=== PATIENT | female | born 1995 ===

== ENCOUNTER 2020-01-20 13:08 | Outpatient (REF) | payer OTHER, SELFPAY | END 2020-01-20 13:09 | disposition home or self-care (01) | LOC: HO.LAB 13:08 | PROVIDERS: PCP Nurse Practitioner Pediatrics; Visit Provider Advanced Practice Midwife | DX: Z78.9 Other specified health status (principal); Z32.01 Encounter for pregnancy test, result positive | CPT/HCPCS: 84702; 99211 ==

== ENCOUNTER 2020-01-31 10:08 | Outpatient (REF) | payer OTHER, SELFPAY ==
--- NOTE | 2020-01-31 10:14 | US_ITS ---
EXAMINATION: OBSTETRICAL ULTRASOUND HISTORY: 24-year-old at [id number] with on certain LMP NT evaluation COMPARISON: None TECHNIQUE: Real time transabdominal imaging with color and M-mode Doppler. PRESENTATION: Vertex PLACENTA LOCATION: Anterior without previa AMNIOTIC FLUID: Normal MEASUREMENTS: 1. Biparietal Diameter: 3.32 cm; 16.3 wks 2. Head Circumference: 12.3 cm; 16.2 wks 3. Abdominal Circumference: 9.94 cm; 16.0 wks 4. Femur Length: 2.1 cm; 16.2 wks 5. Heart Rate: 144 beats per minute WEIGHT: Estimated weight is 145 grams (0 lbs 5 oz) -- N/A %. Normal views of lateral cerebral ventricle, 4ch view, kidneys, urinary bladder, stomach. GESTATIONAL AGE: 1. Established GA: N/A wks 2. GA from [facility]: 16.2 wks ESTIMATED DATE OF DELIVERY: 1. Established EILEEN: N/A 2. [facility]EN from [facility]: 07/15/2020 US/US OB <= 14 weeks fetus IMPRESSION: 1. Single live fetus 2. Size greater than dates. The remainder of her LMP was uncertain, she is further along than she had anticipated. Her best EILEEN is 07/15/2020. RECOMMENDATIONS: 1. Follow-up in approximately 2-3 weeks for survey (scheduled). Thank you very much for this referral.
== END 2020-01-31 10:09 | disposition home or self-care (01) ==
LOC: HO.US 10:08
PROVIDERS: Visit Provider Advanced Practice Midwife
DX: O26.849 Uterine size-date discrepancy, unspecified trimester (principal); Z78.9 Other specified health status
CPT/HCPCS: 76801

== ENCOUNTER 2020-02-14 13:03 | Outpatient (REF) | payer OTHER, SELFPAY ==
--- NOTE | 2020-02-14 | US_ITS ---
EXAMINATION: US OBSTETRICAL CLINICAL INFORMATION: 24-year-old at 18.2 weeks of gestation Suspected anomaly COMPARISON: 01/31/2020 TECHNIQUE: Real-time transabdominal ultrasound was performed using C1-5 megahertz transducer. FINDINGS: A single, active, fetus is seen in vertex presentation. The placenta is anterior without previa, and the amniotic fluid volume is wnl. MEASUREMENTS: 1. Biparietal Diameter: 4.0 cm; 18.2 wks 2. Occipital Frontal Diameter: 5.0 cm 3. Head Circumference: 14.7 cm; 18.0 wks 4. Abdominal Circumference: 11.7 cm; 17.3 wks 5. Femur Length: 2.6 cm; 18.0 wks 6. Humerus Length: 2.5 cm; 17.6 wks 7. Tibia Length: 2.3 cm; 18.3 wks 8. Ulna Length: 2.2 cm; 17.5 wks 9. Lateral ventricle: 0.7 cm 10. Cerebellum: 1.75 cm; 18.3 wks 11. Cisterna Magna: 0.29 cm 12. Nuchal Fold: 2.4 mm 13. Heart Rate: 147 beats per minute Rt ovary: normal Lt ovary: normal Cervical length 3.8 cm on T/A. GESTATIONAL AGE: 1. Established GA: 18.2 wks 2. GA from [facility]: 18.0 wks ESTIMATED DATE OF DELIVERY: 1. Established EILEEN: 07/15/2020 2. EILEEN from [facility]: 07/17/2020 ANATOMY: The visualized anatomy includes but not limited to: 1. Cranium: Normal 2. Intracranial anatomy: cavum septum pellucidi, lateral ventricles, choroid plexus, cerebellum, posterior fossa, third and fourth ventricles. 3. face: orbits, lip/palate, profile, nasal bone 4. Heart: four-chamber view of the heart, ventricular septum, foramen ovale, pulmonary vein, left and right outflow tracts, three-vessel view, 3 vessel trachea view, aortic and ductal arches, situs.. 5. Diaphragm: Normal 6. Abdominal wall: Normal 7. Cord Insertion: Normal 8. Spine: Cervical, thoracic, lumbar, sacral. 9. Stomach: Normal size and shape 10. Right Kidney: Normal 11. Left Kidney: Normal 12. 3 vessel cord: Normal 13. Upper extremity: Open hands, fifth digit. 14. Lower extremity: Tibia, fibula, bilateral feet. 15. Bladder: Normal 16. Genitalia: Female, patient aware US/US OB /maternal detail IMPRESSION: 1. Single, living, intrauterine with appropriate biometry. 2. Normal survey DISCUSSION: I reviewed today's ultrasound findings. We discussed the limitations of ultrasound in diagnosing aneuploidy and other congenital abnormalities. I reviewed the differences between screening test and diagnostic test. Amniocentesis was discussed and declined. She was informed that the baseline incidence of congenital abnormalities is approximately 3-5%. Not all these conditions are diagnosable in utero. RECOMMENDATIONS: Thank you for allowing me to participate in her care. Visiting time 25 minutes. Majority of this visit was spent reviewing and discussing her care.
== END 2020-02-14 13:04 | disposition home or self-care (01) ==
LOC: HO.US 13:03
PROVIDERS: Visit Provider Advanced Practice Midwife
DX: O35.9XX0 Maternal care for (suspected) fetal abnormality and damage, unspecified, not applicable or unspecified (principal); Z36.3 Encounter for antenatal screening for malformations
CPT/HCPCS: 76811

== ENCOUNTER → 2020-03-20 09:59 | Outpatient (BNVA) | payer OTHER, SELFPAY | PROVIDERS: Visit Provider Advanced Practice Midwife | DX: Z13.89 Encounter for screening for other disorder (principal) | CPT/HCPCS: 99212 ==

== ENCOUNTER 2020-04-01 12:45 | Outpatient (REF) | payer OTHER, SELFPAY ==
[2020-04-02 11:23] LABS: BV Int Neg Control Negative (Negative); BV Int Pos Control Positive (Positive)
[2020-04-02 11:58] LABS: C. trachomatis RNA TMA NOT DETECTED (NOT DETECTED); N. gonorrhoeae RNA TMA NOT DETECTED (NOT DETECTED)
== END 2020-04-01 12:46 | disposition home or self-care (01) ==
LOC: HO.LAB 12:45
PROVIDERS: Visit Provider Advanced Practice Midwife
DX: O99.891 Other specified diseases and conditions complicating pregnancy (principal); N89.8 Other specified noninflammatory disorders of vagina; Z3A.25 25 weeks gestation of pregnancy
CPT/HCPCS: 36415; 81003; 87480; 87491; 87510; 87591; 87660; 99212

== ENCOUNTER 2020-04-27 14:54 | Outpatient (REF) | payer OTHER, SELFPAY ==
[2020-04-27 15:32] LABS: MANUAL DIFF FLAG NO
[2020-04-27 15:39] LABS: Basophils Absolute Auto 0.1 X10*3/uL (0.0-0.2); Basophils Percent Auto 0.3 % (0-2); Eosinophils Absolute Auto 0.1 X10*3/uL (0.0-0.4); Eosinophils Percent Auto 0.6 % (0-4); Hematocrit 36.1 % (37-47); Hemoglobin 11.3 g/dl (12.0-16.0); Imm Gran Abs Auto 0.21 X10*3/uL (0.00-0.03); Imm Gran Pct Auto 1.4 % (0.0-0.4); Lymphocytes Absolute Auto 2.2 X10*3/uL (1.2-4.9); Lymphocytes Percent Auto 14.5 % (20-40); Mean Corpuscular HGB Conc 31.3 g/dl (31.0-35.0); Mean Corpuscular Hemoglobin 26.7 pg (27.0-33.0); Mean Corpuscular Volume 85.3 fL (80-98); Mean Platelet Volume 10.2 fL (9.4-12.3); Monocytes Absolute Auto 0.7 X10*3/uL (0.1-1.2); Monocytes Percent Auto 4.7 % (2-11); Neutrophils Percent Auto 78.5 % (45-73); Platelet Count 324 X10*3/uL (160-400); Red Blood Count 4.23 X10*6/uL (4.20-5.50); Red Cell Distribution Width 12.3 % (11.0-16.0); White Blood Count 15.3 X10*3/uL (4.8-10.8)
[2020-04-27 16:42] LABS: Syphilis Screen Nonreactive (Nonreactive)
[2020-04-27 18:18] LABS: Amphetamine Screen Urine Not Detected (Not Detect); Barbiturates, Urine Not Detected (Not Detect); Benzodiazepines Screen Urine Not Detected (Not Detect); Cannabinoid Screen Urine POSITIVE (Not Detect); Cocaine Screen Urine Not Detected (Not Detect); Opiate Screen Urine Not Detected (Not Detect); Phencyclidine Screen Urine Not Detected (Not Detect)
[2020-04-28 21:12] LABS: Rubella IgG Antibody 2.08 Index
[2020-04-29 08:15] LABS: HIV AB/AG Nonreactive (Nonreactive); HIV Num 1 0.05 S/CO (0.00-0.99)
[2020-04-29 09:01] LABS: HBsAGNum1 0.14 S/CO (0.00-0.99); Hepatitis B Surface Antigen Negative (Negative); ~HepC Num1 0.07 S/CO (0.00-0.79); ~Hepatitis C Antibody Nonreactive (Nonreactive)
[2020-04-29 20:37] LABS: C. trachomatis RNA TMA NOT DETECTED (NOT DETECTED); N. gonorrhoeae RNA TMA NOT DETECTED (NOT DETECTED)
== END 2020-04-27 14:55 | disposition home or self-care (01) ==
LOC: HO.LAB 14:54
PROVIDERS: Absent Provider Advanced Practice Midwife; PCP Internal Medicine; Visit Provider Advanced Practice Midwife
DX: Z34.90 Encounter for supervision of normal pregnancy, unspecified, unspecified trimester (principal)
CPT/HCPCS: 80307; 85025; 85027; 86762; 86780; 86787; 86803; 86850; 86900; 86901; 87086; 87340; 87389; 87491; 87591

== ENCOUNTER 2020-04-29 13:10 | Outpatient (REF) | payer OTHER, SELFPAY | END 2020-04-29 13:11 | disposition home or self-care (01) | LOC: HO.LAB 13:10 | PROVIDERS: Visit Provider Advanced Practice Midwife | DX: O99.343 Other mental disorders complicating pregnancy, third trimester (principal); F32.9 Major depressive disorder, single episode, unspecified; O99.213 Obesity complicating pregnancy, third trimester; E66.9 Obesity, unspecified; O09.33 Supervision of pregnancy with insufficient antenatal care, third trimester; O99.323 Drug use complicating pregnancy, third trimester; F12.90 Cannabis use, unspecified, uncomplicated; O99.113 Other diseases of the blood and blood-forming organs and certain disorders involving the immune mechanism complicating pregnancy, third trimester; D72.829 Elevated white blood cell count, unspecified; O26.893 Other specified pregnancy related conditions, third trimester; R82.998 Other abnormal findings in urine; Z3A.29 29 weeks gestation of pregnancy | CPT/HCPCS: 81003; 87086; 99212 ==

== ENCOUNTER 2020-05-19 13:10 | Outpatient (REF) | payer OTHER, SELFPAY ==
[2020-05-19 15:26] LABS: Hematocrit 38.1 % (37-47); Hemoglobin 11.8 g/dl (12.0-16.0); Mean Corpuscular Hemoglobin 26.8 pg (27.0-33.0); Mean Corpuscular Volume 86.6 fL (80-98); Platelet Count 354 X10*3/uL (160-400); Red Cell Distribution Width 12.8 % (11.0-16.0); White Blood Count 16.3 X10*3/uL (4.8-10.8)
[2020-05-19 15:28] LABS: Glucose 1 Hour PP 50gm Dose 71 mg/dL (60-140)
[2020-05-20 08:46] LABS: Syphilis Screen Nonreactive (Nonreactive)
[2020-05-20 11:40] LABS: CT PCR NOT DETECTED (Not Detect.); NG PCR NOT DETECTED (Not Detect.)
== END 2020-05-19 13:11 | disposition home or self-care (01) ==
LOC: HO.LAB 13:10
PROVIDERS: Advanced Practice Midwife; Visit Provider Advanced Practice Midwife
DX: O99.343 Other mental disorders complicating pregnancy, third trimester (principal); F32.9 Major depressive disorder, single episode, unspecified; Z20.2 Contact with and (suspected) exposure to infections with a predominantly sexual mode of transmission; Z3A.00 Weeks of gestation of pregnancy not specified
CPT/HCPCS: 36415; 85027; 86780; 87491; 87591

== ENCOUNTER → 2020-05-21 15:21 | Outpatient (BNVA) | payer OTHER, SELFPAY | PROVIDERS: Visit Provider Obstetrics & Gynecology | DX: Z34.90 Encounter for supervision of normal pregnancy, unspecified, unspecified trimester (principal); Z3A.32 32 weeks gestation of pregnancy | CPT/HCPCS: 99212 ==

== ENCOUNTER → 2020-06-09 13:43 | Outpatient (BNVA) | payer OTHER, SELFPAY | PROVIDERS: Visit Provider Advanced Practice Midwife | DX: Z34.83 Encounter for supervision of other normal pregnancy, third trimester (principal); B37.3 Candidiasis of vulva and vagina; Z3A.34 34 weeks gestation of pregnancy | CPT/HCPCS: 81003; 99212 ==

== ENCOUNTER 2020-06-23 14:16 | Outpatient (REF) | payer OTHER, SELFPAY ==
[2020-06-24 04:49] LABS: CT PCR NOT DETECTED (Not Detect.); NG PCR NOT DETECTED (Not Detect.)
== END 2020-06-23 14:17 | disposition home or self-care (01) ==
LOC: HO.LAB 14:16
PROVIDERS: Visit Provider Advanced Practice Midwife
DX: Z34.83 Encounter for supervision of other normal pregnancy, third trimester (principal); Z3A.36 36 weeks gestation of pregnancy
CPT/HCPCS: 81003; 87081; 87147; 87491; 87591; 99212

== ENCOUNTER → 2020-07-01 14:43 | Outpatient (BNVA) | payer OTHER, SELFPAY | PROVIDERS: Visit Provider Advanced Practice Midwife | DX: Z34.83 Encounter for supervision of other normal pregnancy, third trimester (principal); Z3A.38 38 weeks gestation of pregnancy | CPT/HCPCS: 81003; 99212 ==

== ENCOUNTER → 2020-07-09 15:08 | Outpatient (BNVA) | payer OTHER, SELFPAY | PROVIDERS: Visit Provider Advanced Practice Midwife | DX: O36.8330 Maternal care for abnormalities of the fetal heart rate or rhythm, third trimester, not applicable or unspecified (principal); Z3A.39 39 weeks gestation of pregnancy | CPT/HCPCS: 59025; 99212 ==

== ENCOUNTER 2021-05-17 11:57 | Emergency (ER) | payer OTHER, SELFPAY | END 2021-05-17 13:21 | disposition left against medical advice (07) | PROVIDERS: Emergency Provider Emergency Medicine | DX: R42 Dizziness and giddiness (principal); N93.9 Abnormal uterine and vaginal bleeding, unspecified ==

== ENCOUNTER 2021-05-17 22:19 | Day surgery (SDC) | payer OTHER, SELFPAY ==
--- NOTE | ~2021-05-17 | US_ITS ---
EXAMINATION: US PELVIS CLINICAL INFORMATION: pelvic pain, menorrhagia. Chemical at the end of February. COMPARISON: None TECHNIQUE: Ultrasound of the pelvis is performed using both transabdominal and transvaginal transducers along with Doppler. Transvaginal imaging is performed due to inadequate visualization transabdominally. FINDINGS: Uterus: The uterus is anteverted and measures 8.3 x 4.7 x 5.5 cm. There is heterogeneous thickening of the endometrium measuring up to 1.9 cm with internal blood flow on color Doppler. No significant internal fluid in the endometrial canal. No fibroids are identified. Adnexa: Both ovaries are visualized. There is normal color flow to the adnexa. There is no ovarian torsion. There is no pelvic ascites or fluid collection. There is likely a resolving corpus luteum on the left, measuring 2.2 cm in diameter. Right ovary measures 3.9 x 1.9 x 2.5 cm. 9.7 mL Left ovary measures 4.9 x 2.3 x 2.2 cm. 13 mL Trace intraperitoneal free fluid. US/US pelvic and transvaginal IMPRESSION: Heterogeneous thickening of the uterine endometrium with internal blood flow on color Doppler, potentially due to retained products of conception given the patient history of chemical .
--- NOTE | ~2021-05-17 | US_ITS ---
EXAMINATION: US PELVIS, LIMITED/FOLLOW UP CLINICAL INFORMATION: Suction D C COMPARISON: Pelvic ultrasound from the same day. TECHNIQUE: US/US pelvic limited FINDINGS/IMPRESSION: Multiple intraprocedural images demonstrate echogenic impingement in the region of the endometrial canal. Endometrial thickness is normal on the post procedural images.
[2021-05-17 22:36] VITALS: BP 132/51; PULSE 88; RESP 18; TEMP 35.9; O2SAT 100; BMI 31.8
[2021-05-18] VITALS (16 sets, daily range): BP systolic 110–124; BP diastolic 47–72; PULSE 72–89; RESP 14–20; TEMP 36.3–36.9; O2SAT 94–100
[2021-05-18 01:53] LABS: MANUAL DIFF FLAG NO
[2021-05-18 01:55] LABS: Appearance Urine HAZY; Basophils Percent Auto 0.4 % (0-2); Color Urine YELLOW; Eosinophils Absolute Auto 0.2 X10*3/uL (0.0-0.4); Glucose Urine UA NEG (NEG); Hematocrit 23.8 % (37.0-47.0); Imm Gran Abs Auto 0.03 X10*3/uL (0.00-0.03); Imm Gran Pct Auto 0.3 % (0.0-0.4); Leukocyte Esterase Urine NEG (NEG); Lymphocytes Absolute Auto 2.9 X10*3/uL (1.2-4.9); Lymphocytes Percent Auto 28.6 % (20-40); Mean Corpuscular HGB Conc 28.2 g/dl (31.0-35.0); Mean Corpuscular Volume 74.6 fL (80.0-98.0); Mean Platelet Volume 10.3 fL (9.4-12.3); Monocytes Absolute Auto 0.7 X10*3/uL (0.1-1.2); Monocytes Percent Auto 6.8 % (2-11); Neutrophils Absolute Auto 6.2 x10*3/uL (2.0-8.3); Neutrophils Percent Auto 61.9 % (45-73); Nitrite Urine NEG (NEG); PH 6.5 (5.0-8.0); Platelet Count 341 X10*3/uL (160-400); Red Blood Count 3.19 X10*6/uL (4.20-5.50); Red Cell Distribution Width 15.9 % (11.0-16.0); Specific Gravity - Urine 1.025 (1.005-1.025); UACC Culture Trigger NO; Urine Blood 3+ (NEG); Urine Ketones NEG (NEG); Urine Protein TRACE MG/DL (NEG-TRACE)
[2021-05-18 01:57] LABS: Hemoglobin 6.7 g/dl (12.0-16.0)
[2021-05-18 01:58] LABS: UPreg QC Valid YES; Urine Pregnancy NEGATIVE (NEGATIVE)
[2021-05-18 02:03] LABS: Bacteria Urine TRACE /LPF; Mucus Urine 1+ /LPF; RBC Urine 50-75 /HPF (0); Squamous Epithelial Cell Urine 3+ /LPF; UACC CULT YES
[2021-05-18 02:16] LABS: Alanine Aminotransferase 8 U/L (0-31); Albumin Level 4.3 g/dL (3.5-5.0); Alkaline Phosphatase 62 U/L (39-117); Anion Gap 15 (12-20); Aspartate Amino Transferase 11 U/L (5-31); Bilirubin Total 0.3 mg/dL (0.0-1.0); Blood Urea Nitrogen 11 mg/dL (9-16); Calcium 9.2 mg/dL (8.4-10.2); Carbon Dioxide 24 mmol/L (22-29); Chloride 105 mmol/L (96-108); Estimated Glomerular Filt Rate > 60; Glucose Random 101 mg/dL (60-115); Lipase 30 U/L (8-78); Potassium 4.2 mmol/L (3.3-5.1); Sodium 140 mmol/L (135-145); Total Protein 7.2 g/dL (6.5-8.0)
[2021-05-18 02:21] LABS: HCG Quantitative 8 mIU/mL
--- NOTE | 2021-05-18 02:27 | ED.FEMALEGU ---
HPI - Female Genitourinary General Chief complaint: Vaginal Bleeding Stated complaint: vaginal bleeding [id number] Time Seen by Provider: 05/18/21 02:01 Source: patient Mode of arrival: ambulatory History of Present Illness HPI Narrative: 25-year-old female, , presents after having undergone medical in February and states that she has ?not stopped bleeding since that time?. She states that she did follow-up with her primary care provider today who attempted to reach out to OBGYN without success and referred the patient to the emergency room for further evaluation. Patient denies any diaphoresis, shortness of breath, palpitations, but states that she has begun experiencing dizziness on physician change from sitting to standing. Patient states that on average she is changing her pads 6-12 times in 24 hours. She reports that the blood is painless in nature and denies any personal or family history of bleeding disorders. Related Data Home Medications Medication Instructions Recorded Confirmed prenat.vits,maribel,[id number] 1 tab PO DAILY 03/20/20 07/09/20 Previous Rx's Medication Instructions Recorded metronidazole 0.75 % vaginal gel 1 appful VAGINAL DAILY 5 Days #70 g 04/29/20 (Metrogel Vaginal) clotrimazole 1 % vaginal cream 1 appful VAGINAL BEDTIME #45 g 06/09/20 Allergies Allergy/AdvReac Type Severity Reaction Status Date / Time No Known Allergies Allergy Verified 07/09/20 15:53 [No Known Allergies*] Review of Systems Review of Systems: Pertinent positives and negatives as stated in HPI 10 point review of systems is otherwise negative. PMFSH Past Medical History Source: nursing notes reviewed Medical History Depression affecting in third trimester, antepartum Encounter for supervision of normal in third trimester Family History Family History Father Hx of diabetes mellitus Paternal Grandmother Hx of diabetes mellitus Social History Social History Household Members: Significant Other and Children Alcohol intake: never Advance Directives: No Advance Directives Information Provided: Yes Patient : No service: No Current occupational status: unemployed Current occupational exposures/hazards: No Physical Exam Vital Signs: Vital Signs: Last Vital Signs Temp 97.9 F 03/22/22 02:08 Pulse 84 05/18/21 04:15 Resp 15 05/18/21 04:15 BP 116/62 05/18/21 04:15 Pulse Ox 96 05/18/21 04:15 BMI result Body Mass Index 31.8 VITAL SIGNS: Reviewed. GENERAL: Well developed, well nourished, in no acute distress. HEAD: Normocephalic/atraumatic, EYES: PERRLA, EOMI, pale conjunctiva OROPHARYNX: no oral lesions noted, posterior pharynx clear, pale mucosa NECK: Supple, no adenopathy LUNGS: Normal breath sounds. No adventitious sounds or accessory muscle use. SpO2<100> CARDIOVASCULAR: Regular rate and rhythm without noted murmurs ABDOMEN: Soft, non-tender, non-distended with bowel sounds. MUSCULOSKELETAL: No tenderness, deformities, or effusions noted on gross inspection. EXTREMITIES: No cyanosis, clubbing or edema. SKIN: Inspection of the skin reveals no rashes, but pallor NEUROLOGIC: Alert and oriented x 4. Strength and sensation to light touch were grossly intact x 4. Course Course Course Narrative: 25-year-old female with history and clinical presentation suggestive of possible retained products and patient did not receive any subsequent follow-up after she underwent the medical . Review of all investigations consistent with acute blood loss anemia, patient is typed and screened, this case was discussed with Dr. Plata who will re-evaluate the patient for possible suction D&C after repeat CBC at 06:00. Patient was informed of all plans and results. Ultrasound was significant for suggestion of retained products. 0412: Dr Plata take patient to the OR, patient will receive 1 unit RBC and was consented for prior to administration. Patient was informed of all plans and understands. MDM - Female Genitourinary Lab Data Result diagrams: 05/18/21 01:48 05/18/21 01:48 Labs: Lab Results 05/18/21 05/18/21 05/18/21 Range/Units 01:48 01:48 01:48 WBC 10.0 (4.8-10.8) X10*3/uL RBC 3.19 L (4.20-5.50) X10*6/uL Hgb 6.7 L* (12.0-16.0) g/dl Hct 23.8 L (37.0-47.0) % MCV 74.6 L (80.0-98.0) fL MCH 21.0 L (27.0-33.0) pg MCHC 28.2 L (31.0-35.0) g/dl RDW 15.9 (11.0-16.0) % Plt Count 341 (160-400) X10*3/uL MPV 10.3 (9.4-12.3) fL Immature Gran % (Auto) 0.3 (0.0-0.4) % Neut % (Auto) 61.9 (45-73) % Lymph % (Auto) 28.6 (20-40) % [place] % (Auto) 6.8 (2-11) % Eos % (Auto) 2.0 (0-4) % Baso % (Auto) 0.4 (0-2) % Lymph # (Auto) 2.9 (1.2-4.9) X10*3/uL [place] # (Auto) 0.7 (0.1-1.2) X10*3/uL Eos # (Auto) 0.2 (0.0-0.4) X10*3/uL Baso # (Auto) 0.0 (0.0-0.2) X10*3/uL Abs Immat Gran (auto) 0.03 (0.00-0.03) X10*3/uL Absolute Neuts (auto) 6.2 (2.0-8.3) x10*3/uL Absolute Nucleated RBC 0.000 (0.0-0.012) X10*3/uL Nucleated RBC % (auto) 0.0 (0.0-0.2) /100WBC Sodium 140 (135-145) mmol/L Potassium 4.2 (3.3-5.1) mmol/L Chloride 105 (96-108) mmol/L Carbon Dioxide 24 (22-29) mmol/L Anion Gap 15 (12-20) BUN 11 (9-16) mg/dL Creatinine 0.75 (0.5-1.4) mg/dL Estim Creat Clear Calc 117.0 Estimated GFR > 60 Random Glucose 101 (60-115) mg/dL Calcium 9.2 (8.4-10.2) mg/dL Total Bilirubin 0.3 (0.0-1.0) mg/dL AST 11 (5-31) U/L ALT 8 (0-31) U/L Alkaline Phosphatase 62 (39-117) U/L Total Protein 7.2 (6.5-8.0) g/dL Albumin 4.3 (3.5-5.0) g/dL Lipase 30 (8-78) U/L Beta HCG, Quant 8 mIU/mL Urine Color Urine Appearance Urine pH (5.0-8.0) Ur Specific [place] (1.005-1.025) Urine Protein (NEG-TRACE) MG/DL Urine Glucose (UA) (NEG) MG/DL Urine Ketones (NEG) MG/DL Urine Blood (NEG) Urine Nitrite (NEG) Ur Leukocyte Esterase (NEG) Urine RBC (0) /HPF Urine WBC (0-4) /HPF Ur Squamous Epith Cells /LPF Urine Bacteria /LPF Urine Mucus /LPF Urine Test (NEGATIVE) Blood Type Antibody Screen Crossmatch 05/18/21 05/18/21 05/18/21 Range/Units 01:48 01:49 03:23 WBC (4.8-10.8) X10*3/uL RBC (4.20-5.50) X10*6/uL Hgb (12.0-16.0) g/dl Hct (37.0-47.0) % MCV (80.0-98.0) fL MCH (27.0-33.0) pg MCHC (31.0-35.0) g/dl RDW (11.0-16.0) % Plt Count (160-400) X10*3/uL MPV (9.4-12.3) fL Immature Gran % (Auto) (0.0-0.4) % Neut % (Auto) (45-73) % Lymph % (Auto) (20-40) % [place] % (Auto) (2-11) % Eos % (Auto) (0-4) % Baso % (Auto) (0-2) % Lymph # (Auto) (1.2-4.9) X10*3/uL [place] # (Auto) (0.1-1.2) X10*3/uL Eos # (Auto) (0.0-0.4) X10*3/uL Baso # (Auto) (0.0-0.2) X10*3/uL Abs Immat Gran (auto) (0.00-0.03) X10*3/uL Absolute Neuts (auto) (2.0-8.3) x10*3/uL Absolute Nucleated RBC (0.0-0.012) X10*3/uL Nucleated RBC % (auto) (0.0-0.2) /100WBC Sodium (135-145) mmol/L Potassium (3.3-5.1) mmol/L Chloride (96-108) mmol/L Carbon Dioxide (22-29) mmol/L Anion Gap (12-20) BUN (9-16) mg/dL Creatinine (0.5-1.4) mg/dL Estim Creat Clear Calc Estimated GFR Random Glucose (60-115) mg/dL Calcium (8.4-10.2) mg/dL Total Bilirubin (0.0-1.0) mg/dL AST (5-31) U/L ALT (0-31) U/L Alkaline Phosphatase (39-117) U/L Total Protein (6.5-8.0) g/dL Albumin (3.5-5.0) g/dL Lipase (8-78) U/L Beta HCG, Quant mIU/mL Urine Color YELLOW Urine Appearance HAZY Urine pH 6.5 (5.0-8.0) Ur Specific [place] 1.025 (1.005-1.025) Urine Protein TRACE (NEG-TRACE) MG/DL Urine Glucose (UA) NEG (NEG) MG/DL Urine Ketones NEG (NEG) MG/DL Urine Blood 3+ H (NEG) Urine Nitrite NEG (NEG) Ur Leukocyte Esterase NEG (NEG) Urine RBC 50-75 H (0) /HPF Urine WBC 10-14 H (0-4) /HPF Ur Squamous Epith Cells 3+ /LPF Urine Bacteria TRACE /LPF Urine Mucus 1+ /LPF Urine Test NEGATIVE (NEGATIVE) Blood Type O Positive Antibody Screen NEGATIVE Crossmatch See Detail Critical Care Time Critical Care Time Critical Care Time: Yes Total Critical Care Time: 30 Attestation: I personally attest to this time spent taking care of the patient. Discharge Plan Discharge Clinical Impression: Menorrhagia, Retained products of conception following , Acute blood loss anemia Patient Disposition: Admitted As Inpatient
--- NOTE | 2021-05-18 04:24 | P.CONOB_ITS ---
RESOURCE RECOVERY SPECIALIST - CN: HPI Data of Consult Consult date: 05/18/21 Primary Care Provider: Ovidio Lovell MD Consult Narrative Narrative: I was consulted on Radha Guerrero who is a 25 year old female P2012 who presented to the emergency room complaining of dizziness after heavy vaginal bleeding last 8 weeks . The [facility] given a dose of p.o. 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 No other symptoms no pelvic pain, fever or chills or vaginal discharge. cc:: CC: PATTERN SCRATCHER - Review of Systems Review of Systems ROS Unobtainable: All systems reviewed & are unremarkable except as noted in HPI and below Cardiovascular: Denies Palpatations, Loss of consciousness or Chest pain Respiratory: Denies Cough, Wheezing or Shortness of breath Musculoskeletal: Denies Low back pain Gastrointestinal: Denies Heartburn, Constipation, Diarrhea, Nausea or Vomiting Genitourinary: Denies Pain with urination, Burning with urination or Urinary frequency Neurological: Denies Migranes Psychological: Denies Depression OB [facility] Past Medical History Medical History Depression affecting in third trimester, antepartum Encounter for supervision of normal in third trimester Family History Family History Father Hx of diabetes mellitus Paternal Grandmother Hx of diabetes mellitus Social History Social History Household Members: Significant Other and Children Alcohol intake: never Advance Directives: No Advance Directives Information Provided: Yes Patient : No service: No Current occupational status: unemployed Current occupational exposures/hazards: No Meds Allergies Allergy/AdvReac Type Severity Reaction Status Date / Time No Known Allergies Allergy Verified 07/09/20 15:53 [No Known Allergies*] RESOURCE RECOVERY SPECIALIST Physical Exam Vitals Vital signs: Temp Pulse Resp BP Pulse Ox 97.9 F 84 15 116/62 96 05/18/21 02:08 05/18/21 04:15 05/18/21 04:15 05/18/21 04:15 05/18/21 04:15 BMI result Body Mass Index 31.8 Constitutional General Appearance: Healthy appearing, Well-nourished and Well-developed Psychiatric Mood and Affect: active and alert, normal mood and normal affect Skin Appearance: No rashes and No lesions Lungs Respiratory Effort: No intercostal retractions Auscultation: Clear to auscultation Cardiovascular Auscultation: RRR Abdomen Auscultation/Inspection/Palpation: Normal bowel sounds, Soft, Non-distended and No tenderness Female Genitalia (Pelvic) Vulva: No lesions Cervix: No cervical motion tenderness Uterus: Normal size Adnexa/Parametria: Adnexal Tenderness: None, Adnexal Mass: None and Parametrial Tenderness: None Additional Comments: Blood per vagina, cervix open RESOURCE RECOVERY SPECIALIST - Results Labs CBC & Chem 7: 05/18/21 04:38 05/18/21 01:48 Labs: Short CBC 05/18/21 Range/Units 01:48 WBC 10.0 (4.8-10.8) X10*3/uL Hgb 6.7 L* (12.0-16.0) g/dl Hct 23.8 L (37.0-47.0) % Plt Count 341 (160-400) X10*3/uL BMP 05/18/21 01:48 Sodium 140 Potassium 4.2 Chloride 105 Carbon Dioxide 24 BUN 11 Creatinine 0.75 Calcium 9.2 Liver Function 05/18/21 Range/Units 01:48 Total Bilirubin 0.3 (0.0-1.0) mg/dL AST 11 (5-31) U/L ALT 8 (0-31) U/L Alkaline Phosphatase 62 (39-117) U/L Albumin 4.3 (3.5-5.0) g/dL Urine 05/18/21 05/18/21 Range/Units 01:48 01:49 Urine Color YELLOW Urine Appearance HAZY Urine pH 6.5 (5.0-8.0) Ur Specific [place] 1.025 (1.005-1.025) Urine Protein TRACE (NEG-TRACE) MG/DL Urine Glucose (UA) NEG (NEG) MG/DL Urine Test NEGATIVE (NEGATIVE) Antibody Screen Antibody Screen NEGATIVE 05/18/21 03:23 Imaging US - abdomen: Radiologist's impression: ITS Impressions Pelvic/Transvag US 05/18/21 02:50 IMPRESSION: Heterogeneous thickening of the uterine endometrium with internal blood flow on color Doppler, potentially due to retained products of conception given the patient history of chemical . Assessment and Plan (1) Retained products of conception following : Status: Acute Plan Transfuse 1 unit of packed RBCs, and proceed with suction D&C under ultrasound guidance. Doxycycline 200 mg p.o. preop. Discussed with the patient the clinical findings and the possible diagnosis of retained products of conception and anemia. Discussed with the patient the benefits of the procedure and its risks including but not limited to: bleeding, infection, risk of uterine perforation, possible injury to bladder, ureter, bowels, blood vessels, possible need for blood transfusion with all its risks, possible laparoscopy, laparotomy or hysterectomy. In addition to possible negative impact on future fertility. All questions answered, the patient verbalized understanding and signed the consent
[2021-05-18 04:43] LABS: Basophils Percent Auto 0.4 % (0-2); Eosinophils Absolute Auto 0.2 X10*3/uL (0.0-0.4); Eosinophils Percent Auto 1.9 % (0-4); Hematocrit 23.9 % (37.0-47.0); Imm Gran Abs Auto 0.05 X10*3/uL (0.00-0.03); Imm Gran Pct Auto 0.5 % (0.0-0.4); Lymphocytes Absolute Auto 2.6 X10*3/uL (1.2-4.9); Lymphocytes Percent Auto 26.6 % (20-40); MANUAL DIFF FLAG NO; Mean Corpuscular Hemoglobin 20.7 pg (27.0-33.0); Mean Corpuscular Volume 73.8 fL (80.0-98.0); Mean Platelet Volume 9.6 fL (9.4-12.3); Monocytes Absolute Auto 0.7 X10*3/uL (0.1-1.2); Monocytes Percent Auto 7.3 % (2-11); Neutrophils Absolute Auto 6.1 x10*3/uL (2.0-8.3); Neutrophils Percent Auto 63.3 % (45-73); Platelet Count 327 X10*3/uL (160-400); Red Blood Count 3.24 X10*6/uL (4.20-5.50); Red Cell Distribution Width 15.9 % (11.0-16.0); White Blood Count 9.6 X10*3/uL (4.8-10.8)
[2021-05-18 04:46] LABS: Hemoglobin 6.7 g/dl (12.0-16.0)
--- NOTE | 2021-05-18 05:26 | HO.ANESPROP2 ---
[facility] Active Problems Active Problems: All Active Problems (Updated 05/18/21 @ 05:24 by Justin Plata MD) Menorrhagia (Acute) Retained products of conception following (Acute) Acute blood loss anemia (Acute) Group B streptococcal infection during (Acute) Variable heart rate decelerations, antepartum (Acute) Depression affecting in third trimester, antepartum (Acute) Encounter for supervision of normal in third trimester (Acute) Yeast infection of the vagina (Acute) (Acute) Cervical cancer screening (Acute) Suspected abnormality affecting management of mother (Acute) Date of last menstrual period (LMP) unknown (Acute) Past Medical History Medical History Depression affecting in third trimester, antepartum Encounter for supervision of normal in third trimester Family History Family History Father Hx of diabetes mellitus Paternal Grandmother Hx of diabetes mellitus Family history of problems with anesthesia: No Surgical History History of Problems with Anesthesia: No Social History Social History Household Members: Significant Other and Children Alcohol intake: never Advance Directives: No Advance Directives Information Provided: Yes Patient : No service: No Current occupational status: unemployed Current occupational exposures/hazards: No Meds Allergies Allergy/AdvReac Type Severity Reaction Status Date / Time No Known Allergies Allergy Verified 07/09/20 15:53 [No Known Allergies*] Active Medications: Current Medications Doxycycline Hyclate (Doxycycline Hyclate 100 Mg Tablet) 200 mg PO ONCE ONE Stop: 05/18/21 05:22 Exam Exam Date and Time: May 18, 2021 0526 Height,Weight and Vital Signs: Height 5 ft 3 in Weight 81.647 kg Last Vital Signs Temp 98.4 F 05/18/21 05:04 Pulse 78 05/18/21 05:04 Resp 14 05/18/21 05:04 BP 116/70 05/18/21 05:04 Pulse Ox 98 05/18/21 05:03 Pertinent Lab Results Pertinent Lab Results: Laboratory Tests 05/18/21 05/18/21 05/18/21 01:48 01:48 01:48 WBC 10.0 RBC 3.19 L Hgb 6.7 L* Hct 23.8 L MCV 74.6 L MCH 21.0 L MCHC 28.2 L RDW 15.9 Plt Count 341 MPV 10.3 Immature Gran % (Auto) 0.3 Neut % (Auto) 61.9 Lymph % (Auto) 28.6 [place] % (Auto) 6.8 Eos % (Auto) 2.0 Baso % (Auto) 0.4 Lymph # (Auto) 2.9 [place] # (Auto) 0.7 Eos # (Auto) 0.2 Baso # (Auto) 0.0 Abs Immat Gran (auto) 0.03 Absolute Neuts (auto) 6.2 Absolute Nucleated RBC 0.000 Nucleated RBC % (auto) 0.0 Sodium 140 Potassium 4.2 Chloride 105 Carbon Dioxide 24 Anion Gap 15 BUN 11 Creatinine 0.75 Estim Creat Clear Calc 117.0 Estimated GFR > 60 Random Glucose 101 Calcium 9.2 Total Bilirubin 0.3 AST 11 ALT 8 Alkaline Phosphatase 62 Total Protein 7.2 Albumin 4.3 Lipase 30 Beta HCG, Quant 8 Urine Color Urine Appearance Urine pH Ur Specific [place] Urine Protein Urine Glucose (UA) Urine Ketones Urine Blood Urine Nitrite Ur Leukocyte Esterase Urine RBC Urine WBC Ur Squamous Epith Cells Urine Bacteria Urine Mucus Urine Test Blood Type Antibody Screen Crossmatch 05/18/21 05/18/21 05/18/21 01:48 01:49 03:23 WBC RBC Hgb Hct MCV MCH MCHC RDW Plt Count MPV Immature Gran % (Auto) Neut % (Auto) Lymph % (Auto) [place] % (Auto) Eos % (Auto) Baso % (Auto) Lymph # (Auto) [place] # (Auto) Eos # (Auto) Baso # (Auto) Abs Immat Gran (auto) Absolute Neuts (auto) Absolute Nucleated RBC Nucleated RBC % (auto) Sodium Potassium Chloride Carbon Dioxide Anion Gap BUN Creatinine Estim Creat Clear Calc Estimated GFR Random Glucose Calcium Total Bilirubin AST ALT Alkaline Phosphatase Total Protein Albumin Lipase Beta HCG, Quant Urine Color YELLOW Urine Appearance HAZY Urine pH 6.5 Ur Specific [place] 1.025 Urine Protein TRACE Urine Glucose (UA) NEG Urine Ketones NEG Urine Blood 3+ H Urine Nitrite NEG Ur Leukocyte Esterase NEG Urine RBC 50-75 H Urine WBC 10-14 H Ur Squamous Epith Cells 3+ Urine Bacteria TRACE Urine Mucus 1+ Urine Test NEGATIVE Blood Type O Positive Antibody Screen NEGATIVE Crossmatch See Detail 05/18/21 04:38 WBC 9.6 RBC 3.24 L Hgb 6.7 L* Hct 23.9 L MCV 73.8 L MCH 20.7 L MCHC 28.0 L RDW 15.9 Plt Count 327 MPV 9.6 Immature Gran % (Auto) 0.5 H Neut % (Auto) 63.3 Lymph % (Auto) 26.6 [place] % (Auto) 7.3 Eos % (Auto) 1.9 Baso % (Auto) 0.4 Lymph # (Auto) 2.6 [place] # (Auto) 0.7 Eos # (Auto) 0.2 Baso # (Auto) 0.0 Abs Immat Gran (auto) 0.05 H Absolute Neuts (auto) 6.1 Absolute Nucleated RBC 0.000 Nucleated RBC % (auto) 0.0 Sodium Potassium Chloride Carbon Dioxide Anion Gap BUN Creatinine Estim Creat Clear Calc Estimated GFR Random Glucose Calcium Total Bilirubin AST ALT Alkaline Phosphatase Total Protein Albumin Lipase Beta HCG, Quant Urine Color Urine Appearance Urine pH Ur Specific [place] Urine Protein Urine Glucose (UA) Urine Ketones Urine Blood Urine Nitrite Ur Leukocyte Esterase Urine RBC Urine WBC Ur Squamous Epith Cells Urine Bacteria Urine Mucus Urine Test Blood Type Antibody Screen Crossmatch Airway Mallampati Class: II TM Dist: >3cm Neck ROM: Full Assessment and Plan Assessment Anesthesia Assessment: Anesthesia Plan Discussed and Chart Reviewed Final Anesthetic Review Family History of Problems with Anesthesia: No History of Problems with Anesthesia: No NPO: Yes ASA Class: II and Emergency Final Preanesthetic Review: No Changes in Pt Med Stat, Meds/Allgs Chart Reviewed, Consent Obtained/Reviewed and Anes Risks/Benef Reviewed Patient Risk: Intermediate Procedure Risk: Intermediate Anesthetic Plan Anesthetic Plan: GA Disposition: Standard PACU
[2021-05-18 05:43] LABS: COVID-19 Test Negative (Negative)
--- NOTE | 2021-05-18 05:57 | PC.NURSE ---
This RN and FRANCO Ruiz unable to locate pre procedure pre op checklist. FRANCO Ruiz contacting surgery for further instruction. Per surgery, to disregard checklist.
--- NOTE | 2021-05-18 06:01 | PC.NURSE ---
Called [facility] to verify location of pre-op checklist on line, since I was not able to located in computer. [facility] nurse was not aware okay to sent down. Notified TRUSS DESIGNER.
--- NOTE | 2021-05-18 06:10 | PC.NURSE ---
pt in the OR at the time that vitals are due
--- NOTE | 2021-05-18 06:31 | PM.OP ---
Brief Operative Note Date of Service: 05/18/21 Pre-op diagnosis: Retained products of conception Post-op diagnosis: same Procedure: Suction D&C under ultrasound guidance Surgeon: Justin Plata MD Anesthesia: MAC Was an Grievance And Appeals Specialist used for this Procedure?: No Estimated blood loss (mL): 0 Pathology: other (Retained products of conception) Condition: stable Disposition: PACU
--- NOTE | 2021-05-18 06:32 | P.OP_ITS ---
Operative Note Operative Note Date of Service: 05/18/21 Narrative: Preop diagnosis: Retained products of conception Operation: suction D and C under ultrasound guidance Postop diagnosis: The same EBL: Minimal Anesthesia: MAC Fountain Roller Assembler: None Pathology: Retained products of conception Procedure: The patient was put in a dorsal distal mid position was scrubbed and draped in the usual sterile fashion. A sterile speculum was inserted inside the patient's vagina the anterior lip of the cervix was grasped with single-tooth tenaculum the cervix was dilated up to 7 mm. Under ultrasonographic guidance flexible 8. Suction tip was introduced inside the patient ran cavity till the f undus was hit then turning the suction 360 degrees around products of conception was sucked out toward the uterine cavity. The suction tip was taken out of the patient uterine cavity sharp curettings was followed in 4 quadrants of the uterus till a gritty feeling was felt. The suction tip was reintroduced under ultrasonographic guidance and intrauterine blood was sucked. The suction tip was taken out. Single-tooth tenaculum was removed hemostasis assured using pressure. The patient tolerated the procedure well and was transferred to the PACU in a stable condition.
[2021-05-18 09:30] LABS: CT PCR NOT DETECTED (Not Detect.); NG PCR NOT DETECTED (Not Detect.)
== END 2021-05-18 07:57 | disposition home or self-care (01) ==
LOC: HO.ED 05-18 06:34 → HO.SSS 05-18 07:22
PROVIDERS: Emergency Provider Student in an Organized Health Care Education/Training Program; PCP Internal Medicine; Visit Provider Obstetrics & Gynecology
PROC: (CPT 59812; principal; 2021-05-18 05:30)
DX: O03.4 Incomplete spontaneous abortion without complication (principal); R42 Dizziness and giddiness; Z20.822 Contact with and (suspected) exposure to COVID-19
CPT/HCPCS: 59812; 36415; 36430; 76830; 76856; 76857; 80053; 81001; 81025; 83690; 84702; 85025; 86850; 86900; 86901; 86923; 87086; 87147; 87491; 87591; 87635; 88305; 99284; 99285; J1100; J2250; J2405; J3010; P9016

== ENCOUNTER 2021-10-03 07:12 | Emergency (ER) | payer OTHER, SELFPAY ==
--- NOTE | ~2021-10-03 | US_ITS ---
EXAMINATION: Limited US PELVIS, TRANSABDOMINAL. PATIENT REFUSED TRANSVAGINAL STUDY. CLINICAL INFORMATION: Recent September 28, 2021. Question retained products of conception. Beta hCG is 7235. COMPARISON: May 18, 2021 TECHNIQUE: Transcutaneous and transvaginal pelvic ultrasound. Transvaginal scanning was performed after voiding to better evaluate the endometrium and adnexa. FINDINGS: The endometrium is thickened at approximately 2.3 cm in diameter with some regions of internal vascularity suggestive of retained products of conception. No gestational sac or pole was identified. The right ovary measures approximately 2.2 x 2.0 x 2.1 cm. No adnexal abnormality appreciated The left ovary measures 3.3 x 2.1 x 1.5 cm. No left adnexal abnormality appreciated. No significant free pelvic fluid. US/US OB limited IMPRESSION: Findings consistent with retained products of conception on this limited transabdominal pelvic study.
[2021-10-03 07:34] VITALS: BP 107/68; PULSE 89; RESP 18; TEMP 37.1; O2SAT 97
[2021-10-03 07:35] VITALS: BP 140/82; PULSE 91; O2SAT 97
[2021-10-03 08:13] LABS: Basophils Absolute Auto 0.1 X10*3/uL (0.0-0.2); Basophils Percent Auto 0.7 % (0-2); Eosinophils Absolute Auto 0.2 X10*3/uL (0.0-0.4); Eosinophils Percent Auto 2.3 % (0-4); Hematocrit 32.5 % (37.0-47.0); Hemoglobin 9.5 g/dl (12.0-16.0); Imm Gran Abs Auto 0.04 X10*3/uL (0.00-0.03); Imm Gran Pct Auto 0.4 % (0.0-0.4); Lymphocytes Absolute Auto 2.7 X10*3/uL (1.2-4.9); Lymphocytes Percent Auto 27.3 % (20-40); MANUAL DIFF FLAG NO; Mean Corpuscular HGB Conc 29.2 g/dl (31.0-35.0); Mean Corpuscular Hemoglobin 20.3 pg (27.0-33.0); Mean Corpuscular Volume 69.4 fL (80.0-98.0); Monocytes Absolute Auto 0.8 X10*3/uL (0.1-1.2); Monocytes Percent Auto 7.9 % (2-11); Neutrophils Absolute Auto 6.2 x10*3/uL (2.0-8.3); Neutrophils Percent Auto 61.4 % (45-73); Platelet Count 424 X10*3/uL (160-400); Red Blood Count 4.68 X10*6/uL (4.20-5.50); Red Cell Distribution Width 18.6 % (11.0-16.0)
[2021-10-03 08:17] LABS: Appearance Urine CLOUDY; Color Urine RED; Glucose Urine UA NEG (NEG); Leukocyte Esterase Urine TRACE (NEG); Nitrite Urine NEG (NEG); Specific Gravity - Urine 1.025 (1.005-1.025); UACC Culture Trigger NO; Urine Blood 3+ (NEG); Urine Ketones NEG (NEG); Urine Protein 2+ MG/DL (NEG-TRACE)
[2021-10-03 08:20] LABS: UPreg QC Valid YES; Urine Pregnancy POSITIVE (NEGATIVE)
[2021-10-03 08:25] LABS: Squamous Epithelial Cell Urine 1+ /LPF
[2021-10-03 08:26] LABS: RBC Urine TNTC /HPF (0); WBC Urine 0-2 /HPF (0-4)
[2021-10-03 08:27] LABS: Bacteria Urine TRACE /LPF
[2021-10-03 08:35] LABS: Anion Gap 12 (12-20); Blood Urea Nitrogen 7 mg/dL (9-16); Calcium 8.5 mg/dL (8.4-10.2); Carbon Dioxide 24 mmol/L (22-29); Chloride 106 mmol/L (96-108); Estimated Glomerular Filt Rate > 60; Glucose Random 94 mg/dL (60-115); Potassium 4.2 mmol/L (3.3-5.1); Sodium 138 mmol/L (135-145)
[2021-10-03 08:42] LABS: HCG Quantitative 7235 mIU/mL
--- NOTE | 2021-10-03 10:13 | ED.BACK ---
HPI - Back Pain/Injury General Chief Complaint: OB Stated Complaint: lower back pain, Time Seen by Provider: 10/03/21 09:42 Source: patient Mode of arrival: ambulatory Limitations: no limitations History of Present Illness HPI Narrative: 25-year-old female who is healthy presents with lower back pain starting last 2 days not improved with ibuprofen at home. [facility] She tells me the next day she developed some bleeding and some abdominal cramping. She has used about 2 pads per day since then with some abdominal cramping. Pain in the back is in the lower area and has been quite severe unrelieved with NSAIDs. Patient denies fevers or chills. Patient has 2 living children, 1 previous AB with failed medical AB requiring D&C Patient was approximately 7 weeks with LMP 07/09 Related Data Previous Rx's Medication Instructions Recorded misoprostol 200 mcg tablet 800 mcg PO ONCE #12 tabs 10/03/21 (Cytotec) oxycodone 5 mg tablet 5 mg PO Q8H PRN pain #3 tabs 10/03/21 Allergies Allergy/AdvReac Type Severity Reaction Status Date / Time No Known Allergies Allergy Verified 07/09/20 15:53 [No Known Allergies*] Review of Systems Review of Systems: Yes all other systems are reviewed and are negative Constitutional: Constitutional: Reports no additional constitutional complaints, Denies body ache(s), Denies chills, Denies fever(s), Denies headache(s) and Denies weakness Eyes: Eyes: Reports no additional eye complaints and Denies change in vision ENT: Reports system reviewed and no additional complaints, except as documented, Denies dizziness, Denies headache(s), Denies nasal congestion, Denies nasal discharge and Denies neck pain Cardiovascular: Cardiovascular: Reports no additional cardiovascular complaints, Denies chest pain, Denies leg edema and Denies dyspnea Respiratory: Respiratory: Reports no additional respiratory complaints, Denies cough and Denies dyspnea Gastrointestinal: Gastrointestinal: Reports no additional gastrointestinal complaints, Reports abdominal pain, Denies diarrhea, Denies nausea and Denies vomiting Genitourinary: Genitourinary: Reports no additional female genitourinary complaints, Reports abnormal vaginal bleeding and Denies urinary incontinence Musculoskeletal: Musculoskeletal: Reports no additional musculoskeletal complaints, Reports back pain, Denies arthralgias, Denies joint swelling, Denies neck pain, Denies numbness and Denies tingling Integumentary/Breasts: Skin/Breast: Reports system reviewed and no additional complaints, except as docu and Denies rash Neurologic: Reports system reviewed and no additional complaints, except as documented, Denies Abnormal speech present, Denies dizziness, Denies headache(s), Denies numbness, Denies tingling and Denies weakness PMFSH Past Medical History Attestation statement: The following information was validated with the patient. Source: old records reviewed and nursing notes reviewed Medical History Depression affecting in third trimester, antepartum Encounter for supervision of normal in third trimester Family History Family History Father Hx of diabetes mellitus Paternal Grandmother Hx of diabetes mellitus Social History Social History Household Members: Significant Other and Children Alcohol intake: never Advance Directives: No Advance Directives Information Provided: No service: No Current occupational status: unemployed Current occupational exposures/hazards: No Physical Exam Vital Signs: Vital Signs: Last Vital Signs Temp 98.4 F 10/03/21 12:47 Pulse 89 10/03/21 12:47 Resp 18 10/03/21 12:47 BP 120/64 10/03/21 12:47 Pulse Ox 98 10/03/21 12:47 O2 Del Method 10/03/21 12:47 BMI result Body Mass Index 30.1 Const: General: cooperative, healthy appearing, comfortable and no acute distress Orientation/consciousness: patient oriented x3 Limitations: no limitations HEENT: Head: Yes normal to inspection Ears: hearing grossly normal bilaterally General nose exam: Normal external nose present Face and sinus: Yes normal facial exam Mouth: Normal oral and palatal mucosa present Throat: Yes posterior oropharynx normal Eyes: General: appearance normal, both eyes and all related structures Pupils: Equal, round and reactive pupils present Neck: Neck: Yes normal visual inspection Chest: Chest palpation & inspection: normal inspection of the chest Resp: Effort & Inspection: normal respiratory effort Auscultation: clear to auscultation bilaterally Cardio: Rate: regular rate Rhythm: regular rhythm Peripheral pulses: Peripheral pulses 2+ throughout GI: Inspection: Yes normal to inspection Palpation (GI): Soft to palpation and nontender Auscultation: normal bowel sounds Back/Spine/Pelvis: Thoracic/Lumbar Spine: thoracic and lumbar spine normal to inspection Skin: General skin exam: no rashes or lesions noted Neuro: General: patient oriented x3, no focal motor deficits and normal sensation to monofilament Cranial nerves: Yes Equal, round and reactive pupils present Cognition (Neuro): normal cognition Speech: No Abnormal speech present Gait exam (Neuro): Normal gait present Motor exam (neuro): 5/5 motor strength present throughout Extrem: General: Yes normal to inspection Course Course Course Narrative: this is a 25-year-old female who had a medical on Monday who presents with continued abdominal pain, back pain and vaginal bleeding with an ultrasound that is consistent with retained products. Will call OB and discuss. Microcytic anemia which actually appears better than patient's previous Reevaluation(s) Reevaluation #1: 1100- Spoke to Dr. Plata who will come in to evaluate the patient. Reevaluation #2: 1230- Patient was seen by Dr. Plata at the bedside. He discussed options with her and the decision was made for the patient to go home to continue with misoprostol. He would like a repeat beta quant tomorrow morning which I ordered in the system. He would also like the patient to follow up with him tomorrow. The patient should take misoprostol 800 mcg and repeat the dose every 3 hours until she starts bleeding and cramping with a max dose of 3. patient can premedicate with oxycodone and she was given 3 tablets of this. patient should return for any heavy bleeding such as more than 2 pads in 1 hour or fever or worsening pain and she should follow up with doctors or be this week. I spoke at length with the patient about this. I reviewed worrisome signs and symptoms and when to return to the emergency department with the patient and she is comfortable with discharge home. MDM - Back Pain/Injury MDM Narrative Medical decision making narrative: 25-year-old female who is approximately 7 weeks with a medical on Monday of this past week presents with increasing back pain, abdominal cramping and vaginal bleeding. Patient has an iron deficiency anemia at baseline. Her hemoglobin is actually stable. Her vitals are stable. She will need labs including a beta quant and an abdominal ultrasound to eval for retained products. She has a previous Rh factor which show she is O positive. Medical Records Attestation: I reviewed the patient's medical records. Lab Data Attestation: I reviewed the patient's lab results. Result diagrams: 10/03/21 07:55 10/03/21 07:55 Labs: Lab Results 10/03/21 10/03/21 10/03/21 Range/Units 07:35 07:55 07:55 WBC 10.0 (4.8-10.8) X10*3/uL RBC 4.68 D (4.20-5.50) X10*6/uL Hgb 9.5 L D (12.0-16.0) g/dl Hct 32.5 L D (37.0-47.0) % MCV 69.4 L (80.0-98.0) fL MCH 20.3 L (27.0-33.0) pg MCHC 29.2 L (31.0-35.0) g/dl RDW 18.6 H (11.0-16.0) % Plt Count 424 H D (160-400) X10*3/uL MPV 10.0 (9.4-12.3) fL Immature Gran % (Auto) 0.4 (0.0-0.4) % Neut % (Auto) 61.4 (45-73) % Lymph % (Auto) 27.3 (20-40) % [place] % (Auto) 7.9 (2-11) % Eos % (Auto) 2.3 (0-4) % Baso % (Auto) 0.7 (0-2) % Lymph # (Auto) 2.7 (1.2-4.9) X10*3/uL [place] # (Auto) 0.8 (0.1-1.2) X10*3/uL Eos # (Auto) 0.2 (0.0-0.4) X10*3/uL Baso # (Auto) 0.1 (0.0-0.2) X10*3/uL Abs Immat Gran (auto) 0.04 H (0.00-0.03) X10*3/uL Absolute Neuts (auto) 6.2 (2.0-8.3) x10*3/uL Absolute Nucleated RBC 0.000 (0.0-0.012) X10*3/uL Nucleated RBC % (auto) 0.0 (0.0-0.2) /100WBC Sodium 138 (135-145) mmol/L Potassium 4.2 (3.3-5.1) mmol/L Chloride 106 (96-108) mmol/L Carbon Dioxide 24 (22-29) mmol/L Anion Gap 12 (12-20) BUN 7 L (9-16) mg/dL Creatinine 0.69 (0.5-1.4) mg/dL Estim Creat Clear Calc TNP Estimated GFR > 60 Random Glucose 94 (60-115) mg/dL Calcium 8.5 D (8.4-10.2) mg/dL Beta HCG, Quant mIU/mL Urine Color RED A Urine Appearance CLOUDY Urine pH 6.0 (5.0-8.0) Ur Specific [place] 1.025 (1.005-1.025) Urine Protein 2+ H (NEG-TRACE) MG/DL Urine Glucose (UA) NEG (NEG) MG/DL Urine Ketones NEG (NEG) MG/DL Urine Blood 3+ H (NEG) Urine Nitrite NEG (NEG) Ur Leukocyte Esterase TRACE H (NEG) Urine RBC TNTC H (0) /HPF Urine WBC 0-2 (0-4) /HPF Ur Squamous Epith Cells 1+ /LPF Urine Bacteria TRACE /LPF Urine Test (NEGATIVE) COVID-19 ([facility]) (Negative) COVID-19 Clin Com 10/03/21 10/03/21 10/03/21 Range/Units 07:55 07:57 10:40 WBC (4.8-10.8) X10*3/uL RBC (4.20-5.50) X10*6/uL Hgb (12.0-16.0) g/dl Hct (37.0-47.0) % MCV (80.0-98.0) fL MCH (27.0-33.0) pg MCHC (31.0-35.0) g/dl RDW (11.0-16.0) % Plt Count (160-400) X10*3/uL MPV (9.4-12.3) fL Immature Gran % (Auto) (0.0-0.4) % Neut % (Auto) (45-73) % Lymph % (Auto) (20-40) % [place] % (Auto) (2-11) % Eos % (Auto) (0-4) % Baso % (Auto) (0-2) % Lymph # (Auto) (1.2-4.9) X10*3/uL [place] # (Auto) (0.1-1.2) X10*3/uL Eos # (Auto) (0.0-0.4) X10*3/uL Baso # (Auto) (0.0-0.2) X10*3/uL Abs Immat Gran (auto) (0.00-0.03) X10*3/uL Absolute Neuts (auto) (2.0-8.3) x10*3/uL Absolute Nucleated RBC (0.0-0.012) X10*3/uL Nucleated RBC % (auto) (0.0-0.2) /100WBC Sodium (135-145) mmol/L Potassium (3.3-5.1) mmol/L Chloride (96-108) mmol/L Carbon Dioxide (22-29) mmol/L Anion Gap (12-20) BUN (9-16) mg/dL Creatinine (0.5-1.4) mg/dL Estim Creat Clear Calc Estimated GFR Random Glucose (60-115) mg/dL Calcium (8.4-10.2) mg/dL Beta HCG, Quant 7235 mIU/mL Urine Color Urine Appearance Urine pH (5.0-8.0) Ur Specific [place] (1.005-1.025) Urine Protein (NEG-TRACE) MG/DL Urine Glucose (UA) (NEG) MG/DL Urine Ketones (NEG) MG/DL Urine Blood (NEG) Urine Nitrite (NEG) Ur Leukocyte Esterase (NEG) Urine RBC (0) /HPF Urine WBC (0-4) /HPF Ur Squamous Epith Cells /LPF Urine Bacteria /LPF Urine Test POSITIVE H (NEGATIVE) COVID-19 ([place]) Negative (Negative) COVID-19 Clin Com See Note Imaging Data abdominal US: Attestation: I personally reviewed and interpreted this imaging study as follows: Radiologist's impression: [address] [address] Ultrasound Report Signed Patient: Radha Briones MR#: [id number] : 1995 Acct:[id number] Age/Sex: 25 / F ADM Date: 10/03/21 Loc: [facility].ED Attending Dr: Ordering Physician: Malia Uribe NP Date of Service: 10/03/21 Procedure(s): US OB limited Accession Number(s): [id number] cc: Malia Uribe NP~ EXAMINATION: Limited US PELVIS, TRANSABDOMINAL. PATIENT REFUSED TRANSVAGINAL STUDY. CLINICAL INFORMATION: Recent September 28, 2021. Question retained products of conception. Beta hCG is 7235. COMPARISON: May 18, 2021 TECHNIQUE: Transcutaneous and transvaginal pelvic ultrasound. Transvaginal scanning was performed after voiding to better evaluate the endometrium and adnexa. FINDINGS: The endometrium is thickened at approximately 2.3 cm in diameter with some regions of internal vascularity suggestive of retained products of conception. No gestational sac or pole was identified. The right ovary measures approximately 2.2 x 2.0 x 2.1 cm. No adnexal abnormality appreciated The left ovary measures 3.3 x 2.1 x 1.5 cm. No left adnexal abnormality appreciated. No significant free pelvic fluid. US/US OB limited IMPRESSION: Findings consistent with retained products of conception on this limited transabdominal pelvic study. ? ? Discharge Plan Discharge Clinical Impression: Incomplete Patient Disposition: Home, Self-Care Instructions: (ED) Additional Instructions: Repeat hormone level in the morning. Walk into the lab to have this done Touch base with Dr Plata tomorrow. Take the oxycodone before taking each dose of the misoprostol Return for fever, severe pain, bleeding through more thrn 2 pads per hour Prescriptions: New oxycodone 5 mg tablet 5 mg PO Q8H PRN (Reason: pain) Qty: 3 0RF Rx Instructions: Partial Fill upon patient request. misoprostol [Cytotec] 200 mcg tablet 800 mcg PO ONCE Qty: 12 0RF Rx Instructions: Insert 4 tabs intravaginally. May repeat every 3 hours if no response. Max dose is 3 doses. Do not repeat the doses if you start bleeding. Referrals: Justin Plata MD [Physician] - 2 days Interventions: ED Discharge Assessment Last Done: 10/03/21 13:02 Discharge Date/Time: 10/03/21 13:02
[2021-10-03] MEDS: Ketorolac Tromethamine 30 MG/ML VIAL IVPUSH (10:37)
[2021-10-03 11:16] LABS: COVID-19 Test Negative (Negative)
[2021-10-03 11:26] VITALS: BMI 30.1
--- NOTE | 2021-10-03 12:32 | PM.GYNCN ---
FINANCIAL AID ADVISOR - CN: HPI Data of Consult Consult date: 10/03/21 Primary Care Provider: Ovidio Lovell MD Consult Narrative Narrative: I was consulted on Radha Guerrero who is a 25 year old female who presented to the emergency room complaining of mild vaginal bleeding with back pain no fever or chills no nausea or vomiting or any other GI or symptoms. The patient change 2 pads last 24 hours; her LMP was on 08/09, the patient missed her menstrual cycle on 09/08 but took a test around the same date and was positive. The patient has been on control pills and did not miss any pills according to her. [facility], no ultrasound was done to confirm IUP nor hCG level drawn. The patient elected to proceed with medical , took mifepristone 200 mg p.o. followed by 800 mcg vaginal misoprostol on 09/28, this was followed by pelvic cramping and vaginal bleeding and passage of few clots and since then the patient has been having some mild spotting/bleeding but started having some back pain this morning presented to the emergency room for evaluation. In the emergency room the following workup was done: HCG was 7235, H&H was 9.5/32.5, blood type positive. A pelvic ultrasound showed a thickened endometrium with vascularity suggestive of retained products of conception with no adnexal masses cc:: CC: ENGINEERING DESIGN SUPERVISOR - Review of Systems Review of Systems ROS Unobtainable: All systems reviewed & are unremarkable except as noted in HPI and below Cardiovascular: Denies Palpatations, Loss of consciousness or Chest pain Respiratory: Denies Cough, Wheezing or Shortness of breath Musculoskeletal: Denies Low back pain Gastrointestinal: Denies Heartburn, Constipation, Diarrhea, Nausea or Vomiting Genitourinary: Denies Pain with urination, Burning with urination or Urinary frequency Neurological: Denies Migranes Psychological: Denies Depression OB PMFSH Past Medical History Medical History Depression affecting in third trimester, antepartum Encounter for supervision of normal in third trimester Family History Family History Father Hx of diabetes mellitus Paternal Grandmother Hx of diabetes mellitus Social History Social History Household Members: Significant Other and Children Alcohol intake: never Advance Directives: No Advance Directives Information Provided: No service: No Current occupational status: unemployed Current occupational exposures/hazards: No Meds Allergies Allergy/AdvReac Type Severity Reaction Status Date / Time No Known Allergies Allergy Verified 07/09/20 15:53 [No Known Allergies*] FINANCIAL AID ADVISOR Physical Exam Vitals Vital signs: Temp Pulse Resp BP Pulse Ox O2 Del Method 98.8 F 89 18 107/68 97 10/03/21 07:34 10/03/21 07:34 10/03/21 07:34 10/03/21 07:34 10/03/21 07:34 10/03/21 07:34 BMI result Body Mass Index 30.1 Constitutional General Appearance: Healthy appearing, Well-nourished and Well-developed Psychiatric Mood and Affect: active and alert, normal mood and normal affect Skin Appearance: No rashes and No lesions Lungs Respiratory Effort: No intercostal retractions Auscultation: Clear to auscultation Cardiovascular Auscultation: RRR Abdomen Auscultation/Inspection/Palpation: Normal bowel sounds, Soft, Non-distended and No tenderness Female Genitalia (Pelvic) Vulva: No lesions Vagina: Nontender Cervix: Grossly normal and No cervical motion tenderness Uterus: Normal size Adnexa/Parametria: Adnexal Tenderness: None, Adnexal Mass: None, Parametrial Tenderness: None and Parametrial Mass: None Additional Comments: Closed cervix , minimal blood per vagina with no evidence of vaginal bleeding FINANCIAL AID ADVISOR - Results Labs CBC & Chem 7: 10/03/21 07:55 10/03/21 07:55 Labs: Short CBC 10/03/21 Range/Units 07:55 WBC 10.0 (4.8-10.8) X10*3/uL Hgb 9.5 L D (12.0-16.0) g/dl Hct 32.5 L D (37.0-47.0) % Plt Count 424 H D (160-400) X10*3/uL BMP 10/03/21 07:55 Sodium 138 Potassium 4.2 Chloride 106 Carbon Dioxide 24 BUN 7 L Creatinine 0.69 Calcium 8.5 D Urine 10/03/21 10/03/21 Range/Units 07:35 07:57 Urine Color RED A Urine Appearance CLOUDY Urine pH 6.0 (5.0-8.0) Ur Specific [place] 1.025 (1.005-1.025) Urine Protein 2+ H (NEG-TRACE) MG/DL Urine Glucose (UA) NEG (NEG) MG/DL Urine Test POSITIVE H (NEGATIVE) Imaging US - abdomen: Radiologist's impression: ITS Impressions Obstetrics Ultrasound 10/03/21 09:58 IMPRESSION: Findings consistent with retained products of conception on this limited transabdominal pelvic study. Assessment and Plan (1) Retained products of conception following : Status: Acute Plan GC and chlamydia and Trichomonas taken. Discussed with the patient the finding on ultrasound showing thickened endometrium with vascularity suggestive of retained products of conception, no adnexal masses, hCG was 7353, H&H 9.5/32.5. Differential diagnosis include products of conception, but ectopic has not been ruled out yet. Recommended hCG to be repeated with an office follow-up in the morning, warnings for a incomplete and ectopic given the patient a she is to call in case of heavy vaginal bleeding and/ or pelvic pain, fever above 100.4, nausea and vomiting . In addition, discussed with the patient the options of treatment including expectant management, repeat misoprostol doses versus suction D& C. All pros and cons, risks and benefits of each were discussed with the patient, the patient decided to proceed with misoprostol repeat doses . 800 mcg vaginal of misoprostol Q 3 up to 3 doses will be prescribed to the patient by Malia Figueroa NP, with oxycodone 5 mg 45 minutes prior to each misoprostol dose x3 doses p.r.n., ibuprofen 800 mg p.o. Q 8 hours p.r.n. pain. Instructions given to patient to come back to the emergency room in case of heavy vaginal bleeding, worsening of pelvic/abdominal pain, fever above 100.4, nausea and vomiting otherwise follow-up in a.m. in the office with repeat hCG, and stay NPO after midnight .
[2021-10-03 12:47] VITALS: BP 120/64; PULSE 89; RESP 18; TEMP 36.9; O2SAT 98
[2021-10-03 15:07] LABS: CT PCR NOT DETECTED (Not Detect.); NG PCR NOT DETECTED (Not Detect.)
== END 2021-10-03 13:02 | disposition home or self-care (01) ==
PROVIDERS: Nurse Practitioner Family; Emergency Provider Emergency Medicine; PCP Internal Medicine
DX: O03.4 Incomplete spontaneous abortion without complication (principal); M54.50 Low back pain, unspecified; Z20.822 Contact with and (suspected) exposure to COVID-19; D50.9 Iron deficiency anemia, unspecified
CPT/HCPCS: 36415; 76815; 80048; 81001; 81025; 84702; 85025; 87491; 87591; 87635; 96374; 99283; 99284; J1885

== ENCOUNTER 2022-07-22 12:53 | Emergency (ER) | payer OTHER, SELFPAY ==
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
[2022-07-22 12:57] VITALS: BP 113/67; PULSE 92; RESP 18; TEMP 36.1; O2SAT 100; BMI 28.3
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
[2022-07-22] MEDS: Acetaminophen 325 MG TABLET 975 MG PO (14:38)
[2022-07-22] MEDS: Ibuprofen 600 MG TABLET PO (14:39)
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
== END 2022-07-22 15:15 | disposition home or self-care (01) ==
PROVIDERS: Emergency Provider Emergency Medicine
DX: S29.012A Strain of muscle and tendon of back wall of thorax, initial encounter (principal); S39.012A Strain of muscle, fascia and tendon of lower back, initial encounter; S50.12XA Contusion of left forearm, initial encounter; V47.5XXA Car driver injured in collision with fixed or stationary object in traffic accident, initial encounter; Y93.89 Activity, other specified; Y92.411 Interstate highway as the place of occurrence of the external cause; Y99.9 Unspecified external cause status
CPT/HCPCS: 72100; 73070; 73090; 99283

== ENCOUNTER 2022-10-11 12:18 | Outpatient (REF) | payer OTHER, SELFPAY ==
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
== END 2022-10-11 12:19 | disposition home or self-care (01) ==
LOC: HO.HHCX 12:18
PROVIDERS: Visit Provider Registered Nurse
DX: M25.562 Pain in left knee (principal); M25.512 Pain in left shoulder
CPT/HCPCS: 73030; 73564

== ENCOUNTER 2022-10-19 12:36 | Outpatient (AMB) | payer OTHER, SELFPAY ==
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
[2022-10-19 12:48] VITALS: BMI 28.3
== END 2022-10-19 13:05 | disposition home or self-care (01) ==
PROVIDERS: Visit Provider Orthopaedic Surgery
DX: M54.2 Cervicalgia (principal)
CPT/HCPCS: 99202

== ENCOUNTER → 2022-10-19 12:36 | Outpatient (BNVA) | payer OTHER, SELFPAY | PROVIDERS: Visit Provider Orthopaedic Surgery ==

== ENCOUNTER 2023-01-17 15:55 | Outpatient (REF) | payer OTHER, SELFPAY ==
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
== END 2023-01-17 15:56 | disposition home or self-care (01) ==
LOC: HO.MRI 15:55
PROVIDERS: Visit Provider Orthopaedic Surgery
DX: S13.4XXA Sprain of ligaments of cervical spine, initial encounter (principal)
CPT/HCPCS: 72141

== ENCOUNTER 2023-03-03 11:58 | Outpatient (REF) | payer OTHER, SELFPAY ==
[2023-03-06 14:03] LABS: RPR Rapid Plasma Reagin NON-REACTIVE (NON-REACTIVE)
[2023-03-08 16:53] LABS: HIV RNA PCR Qn Copies Not Detected Copies/mL; HIV RNA PCR Qn Log Copies Not Detected Log cps/mL
== END 2023-03-03 11:59 | disposition home or self-care (01) ==
LOC: HO.HHCL 11:58
PROVIDERS: Visit Provider Nurse Practitioner Family
DX: Z00.00 Encounter for general adult medical examination without abnormal findings (principal); Z11.4 Encounter for screening for human immunodeficiency virus [HIV]; Z11.3 Encounter for screening for infections with a predominantly sexual mode of transmission
CPT/HCPCS: 0353U; 36415; 80053; 80061; 86592; 86803; 87536; 87900

== ENCOUNTER 2023-07-04 16:34 | Emergency (ER) | payer OTHER, SELFPAY ==
--- NOTE | ~2023-07-04 | US_ITS ---
EXAMINATION: US ABDOMEN LIMITED CLINICAL INFORMATION: Right upper quadrant pain.. COMPARISON: None available. TECHNIQUE: Real-time imaging of the right upper quadrant abdominal viscera. FINDINGS: PANCREAS: Normal. LIVER: The liver is normal in size. The liver contour is normal. Parenchymal echogenicity is mildly increased. No focal hepatic lesion. There is no intrahepatic biliary duct dilatation seen. GALLBLADDER: Normal. The gallbladder is physiologically distended without evidence of stones, sludge, polyps, wall thickening or pericholecystic fluid. COMMON BILE DUCT: Normal in caliber measuring 0.2 cm in diameter. RIGHT KIDNEY: Normal. No hydronephrosis. No renal calculi or focal parenchymal lesions. The kidney measures 9.6 cm in maximum dimension. FREE FLUID: None. US/US abdomen limited IMPRESSION: 1. There is generalized increase in hepatic echotexture, consistent with fatty infiltration or hepatocellular disease. Please correlate clinically. No focal hepatic mass or intrahepatic biliary dilatation is seen. 2. Otherwise, unremarkable examination.
--- NOTE | ~2023-07-04 | CT_ITS ---
EXAMINATION: CT ABDOMEN AND PELVIS WITH CONTRAST CLINICAL INFORMATION: Right lower quadrant pain and tenderness. COMPARISON: Abdominal ultrasound 07/04/2023. TECHNIQUE: Multidetector volumetric images were obtained from the superior aspect of the liver through the pubic symphysis following administration 85 mL of Omnipaque 350 intravenous contrast. Sagittal and coronal reformatted images were obtained on the technologist's workstation. Oral contrast: No This CT examination was performed using dose optimization techniques as appropriate, variously including the following: *Automated exposure control *Adjustment of mA and/or kV according to patient size (this includes techniques or standardized protocols for targeted exams where dose is matched to indication/reason for exam; i.e. extremities or head) *Use of iterative reconstruction technique DLP: 651 mGy-cm FINDINGS: LUNG BASES: No focal consolidation or pleural effusion. LIVER, GALLBLADDER, AND BILIARY TREE: The liver is normal in size, shape, and attenuation. No focal hepatic lesion or biliary ductal dilatation is present. The gallbladder is unremarkable with no evidence of radiopaque gallstones, gallbladder wall thickening, or obvious pericholecystic inflammatory changes. PANCREAS: Unremarkable. SPLEEN: Unremarkable. ADRENAL GLANDS: Unremarkable. KIDNEYS AND URETERS: The kidneys are normal in size, shape, and attenuation. No hydronephrosis, hydroureter, or calculi seen. No perinephric stranding. BLADDER: Unremarkable. GASTROINTESTINAL TRACT: Slightly distended fluid filled loops of small bowel scattered throughout the abdomen. Minimal mesenteric vascular congestion best visualized on the coronal plane. Normal appendix (7:42). No pericolonic inflammatory changes. ABDOMINAL WALL: No significant hernia is appreciated. LYMPH NODES: No lymphadenopathy by size criteria. VASCULAR: Normal caliber abdominal aorta. Main portal vein is patent. PELVIC VISCERA: Simple appearing 5 cm right ovarian cyst. Adjacent approximately 1.7 cm right ovarian corpus luteal cyst. Equivocal right hydrosalpinx with a tubular-shaped structure in continuity with the cyst into the right uterine cornua (3:71). Trace amount of free fluid. OSSEOUS STRUCTURES: No acute or aggressive appearing osseous findings. CT/CT abdomen pelvis w IV con IMPRESSION: 1. Slightly distended fluid-filled loops of small bowel scattered throughout the abdomen with minimal mesenteric vascular congestion. These findings are nonspecific and could be associated with enteritis. 2. Normal appendix. 3. Equivocal right hydrosalpinx, recommend further evaluation with pelvic ultrasound. 4. Simple appearing 5 cm right ovarian cyst, almost certainly benign. Recommend yearly follow-up with pelvic ultrasound.
--- NOTE | ~2023-07-04 | US_ITS ---
EXAMINATION: US PELVIS CLINICAL INFORMATION: Right lower quadrant pain, CT with question hydrosalpinx COMPARISON: None available. TECHNIQUE: Ultrasound of the pelvis is performed using both transabdominal and transvaginal transducers along with Doppler. Transvaginal imaging is performed due to inadequate visualization transabdominally. FINDINGS: The retroverted uterus measures 8.5 cm in length and 4.3 x 4.9 cm in AP and transverse dimensions. Endometrial stripe measures 0.9 cm in thickness. The right ovary measures 6.6 x 4.5 x 4.7 cm there is a right ovarian cyst measuring up to 4.5 cm. The left ovary has a normal appearance measuring 3.1 x 1.3 x 2.5 cm. Doppler evaluation demonstrates normal-appearing arterial and venous waveforms in both ovaries. Small amount of pelvic free fluid is present. Small anechoic structure is also seen adjacent to the right ovary. US/US pelvic and transvaginal IMPRESSION: 1. Right ovarian cyst measuring up to 4.5 cm. Findings are overwhelmingly likely to represent a benign functional cyst. No followup imaging recommended. 2. Small amount of pelvic free fluid, which may be physiologic. 3. Small anechoic structure also noted adjacent to the right ovary, possibly focal hydrosalpinx.
--- NOTE | ~2023-07-04 | US_ITS ---
EXAMINATION: US PELVIS CLINICAL INFORMATION: Right lower quadrant pain, CT with question hydrosalpinx COMPARISON: None available. TECHNIQUE: Ultrasound of the pelvis is performed using both transabdominal and transvaginal transducers along with Doppler. Transvaginal imaging is performed due to inadequate visualization transabdominally. FINDINGS: The retroverted uterus measures 8.5 cm in length and 4.3 x 4.9 cm in AP and transverse dimensions. Endometrial stripe measures 0.9 cm in thickness. The right ovary measures 6.6 x 4.5 x 4.7 cm there is a right ovarian cyst measuring up to 4.5 cm. The left ovary has a normal appearance measuring 3.1 x 1.3 x 2.5 cm. Doppler evaluation demonstrates normal-appearing arterial and venous waveforms in both ovaries. Small amount of pelvic free fluid is present. Small anechoic structure is also seen adjacent to the right ovary. US/US pelvic ovarian doppler IMPRESSION: 1. Right ovarian cyst measuring up to 4.5 cm. Findings are overwhelmingly likely to represent a benign functional cyst. No followup imaging recommended. 2. Small amount of pelvic free fluid, which may be physiologic. 3. Small anechoic structure also noted adjacent to the right ovary, possibly focal hydrosalpinx.
[2023-07-04 18:06] VITALS: BP 138/69; PULSE 85; RESP 16; TEMP 36.9; O2SAT 100; BMI 34.1
--- NOTE | 2023-07-04 18:07 | ED.ABDPAIN ---
HPI - Abdominal Pain General Chief Complaint: Abdominal Pain Stated Complaint: Abd pain, lightheaded Time Seen by Provider: 07/04/23 22:34 Source: patient Mode of arrival: ambulatory Limitations: no limitations History of Present Illness HPI narrative: Patient is a 27-year-old female who presents emergency department for evaluation of right-sided abdominal pain. Reports it is constant in nature described as a stabbing sensation. Denies any exacerbating or alleviating factors. She admits to intermittent episodes of dizziness and lightheadedness, but denies any syncopal episodes. She reports the dizziness is typically associated with increase in the intensity of her pain. She endorses having had intermittent diarrhea described as soft/watery stools for the initial 5 days since her right-sided abdominal pain began but has not had any further episodes of diarrhea over the past 2 days. She reports a history of elective procedural on 06/04/2019 for states she was approximately 7 weeks , this was done through my OBGYN does not recall the name of the office she denies any lower pelvic pain, abnormal vaginal discharge or bleeding, concern for sexually transmitted infections. Denies possibility of at this time, however she does not recall the date of her last menstrual period. Denies any urinary frequency/urgency/hesitancy or dysuria, denies hematuria. Denies headache, neck stiffness, chest pain, shortness of breath, nausea, vomiting. She reports that she has been evaluated by her primary care doctor as well as an urgent care for these symptoms but and has been advised to come to the emergency department for evaluation. Related Data Home Medications ?Medication ?Instructions ?Recorded ?Confirmed diclofenac sodium 1 % topical gel 2 g topical 10/19/22 10/19/22 ibuprofen 800 mg tablet 800 mg PO Q12H PRN pain 10/19/22 10/19/22 naproxen 500 mg tablet 500 mg PO BID 10/19/22 10/19/22 Previous Rx's ?Medication ?Instructions ?Recorded misoprostol 200 mcg tablet 800 mcg (4 x 200 mcg) PO ONCE #12 10/03/21 (Cytotec) tabs oxycodone 5 mg tablet 5 mg PO Q8H PRN pain #3 tabs 10/03/21 cyclobenzaprine 10 mg tablet 10 mg PO TID PRN muscle spasm #14 07/22/22 tabs ibuprofen 600 mg tablet 600 mg PO Q8H PRN pain #14 tabs 07/22/22 lidocaine 5 % topical patch 1 patch topical DAILY #15 ea 07/22/22 Allergies Allergy/AdvReac Type Severity Reaction Status Date / Time No Known Allergies Allergy Verified 07/04/23 18:11 [No Known Allergies*] Review of Systems Review of Systems Yes all other systems are reviewed and are negative [facility] Past Medical History Attestation statement: The following information was validated with the patient. Source: old records reviewed Medical History Depression affecting in third trimester, antepartum Encounter for supervision of normal in third trimester Family History Family History Father Hx of diabetes mellitus Paternal Grandmother Hx of diabetes mellitus Social History Social History (Updated 10/19/22 @ 12:44 by Kristi Santana Saqib) Household Members: Significant Other and Children Alcohol intake: never Patient Tobacco Use Status: Never used Tobacco Advance Directives: No Advance Directives Information Provided: No service: No Current occupational status: employed Current occupation: [employer] Current occupational exposures/hazards: No Physical Exam ED Vital Signs: Vital Signs - 24 hr 07/04/23 18:06 07/04/23 22:09 07/05/23 00:28 Temperature 98.4 F Pulse Rate 85 82 78 Respiratory Rate 16 18 Blood Pressure 138/69 116/55 L 119/52 L Pulse Oximetry 100 98 Oxygen Delivery Method Room Air Room Air 07/05/23 00:28 07/05/23 00:28 Temperature Pulse Rate 79 80 Respiratory Rate Blood Pressure 122/66 115/72 Pulse Oximetry Oxygen Delivery Method BMI result Body Mass Index 34.1 Appearance: Alert.?Oriented to person, place and time. No acute distress.?Normal affect. Eyes: Pupils equal, round and reactive to light.? ENT: Pharynx normal.?? Neck: Normal inspection.? Neck supple.?? CVS: Heart sounds normal. Normal heart rate and rhythm.? Pulses normal.?? Respiratory: No respiratory distress.? Lung sounds clear to auscultation bilaterally?? Abdomen: Soft with right lower quadrant tenderness upon palpation. No rebound tenderness at McBurney's point. Negative Argueta sign. No rigidity. No guarding. Normoactive bowel sounds. No CVA tenderness. Skin: Skin warm and dry.? Normal skin color.? Extremities: No lower extremity edema.? Neuro: Moves all extremities spontaneously. Sensation intact bilaterally. Ambulates with normal steady gait. Course Course Course Narrative: This is a Rapid Medical Examination (RME) performed by Boy Messina PA-C in triage. Full HPI, ROS, assessment and treatment plan per primary provider in the Main ED. 27 y/o female presents to the ER for evaluation of RUQ pain for the last 1 week. intermittent diarrhea but no BM in the last 2 days. pain reported to be a /. unknown LMP. she does report that she had a recent on 06/03. she reports dizziness for the last week as well. on arrival patient is awake, alert, no distress. abd is soft with tenderness to the RUQ without rebound or guarding. also tender in the right pelvic area. no rigidity. no vaginal bleeding or discharge (resolved a few days after the ) Plan: RUQ U/S, labs, HCG quant Reevaluation(s) Reevaluation #1: CT reveals findings consistent with enteritis, slight distention, resolving diarrhea as per HPI. No evidence of appendicitis. There is equivocal right hydrosalpinx recommendation for further evaluation with pelvic ultrasound, case was discussed with ED attending Dr. Valencia who recommends pursuing pelvic ultrasound in the ED given her persistent pain. Her hCG testing is negative I do not suspect ectopic , history seems less likely to be consistent with ovarian torsion she does however have a 5 cm right ovarian cyst, we discussed any potential concerns for sexually transmitted infections and she declines concern for this declines testing. The CT results were discussed with patient. She is agreeable to having pelvic ultrasound at this time Time: 00:55 Reevaluation #2: Patient signed out to ED attending Dr. Watson, pending pelvic ultrasound Time: 02:24 Reevaluation #3: Followed up ultrasound, no evidence of torsion, noted focal hydrosalpinx. Patient declined sexually transmitted infection testing. Patient otherwise has plan for discharge as well as recommended follow-up. Time: 03:32 Medical Decision Making Medical Decision Making MDM Narrative: Patient is a 27-year-old female who presents emergency department for evaluation of right-sided abdominal pain and dizziness/lightheadedness as per HPI. At the time my examination she appears well, nontoxic, afebrile. She is speaking clear full sentences. No respiratory distress. She does have right lower quadrant tenderness upon palpation though this is diffuse, no rebound tenderness at McBurney's point, no CVA tenderness. Orthostatic vital signs were obtained which were negative. Given her episodes of dizziness brought on by intensity of pain I suspect that this is likely the etiology but will exclude alternative causes. Will obtain CBC to evaluate for leukocytosis/ anemia, CMP and lipase to evaluate for abnormal electrolytes /abnormal renal function/ abnormal hepatic/biliary function, EKG to evaluate for ischemia/arrhythmia, orthostatic vital signs. CT of the abdomen and pelvis and Urinalysis. Patient received 1 L normal saline IV fluid in addition to Toradol IV for pain management. Differential Diagnosis Differential Diagnoses: The differential diagnosis associated with the presentation includes (Biliary colic, cholecystitis, cholelithiasis, hydronephrosis, ureteral calculi, pyelonephritis, urinary tract infection, ovarian cyst, ectopic , less likely ovarian torsion, arrhythmia, anemia, electrolyte derangement, ALMA.) Admission/Observation Consideration of admission/observation: Escalation of care including admission/observation considered (See narrative above in course narrative for further detail) Lab Data MDM Lab Attestation statement: I reviewed the patient's lab results. CBC is without leukocytosis or anemia, no thrombocytopenia. No electrolyte derangement. No ALMA. LFTs within normal range, lipase within normal range. HCG negative. Magnesium normal. Urinalysis without evidence of infection or microscopic hematuria. 07/04/23 20:39 07/04/23 20:39 Labs: Lab Results 07/04/23 07/04/23 Range/Units 20:39 22:16 WBC 10.5 (4.8-10.8) X10*3/uL RBC 5.19 (4.20-5.50) X10*6/uL Hgb 12.8 D (12.0-16.0) g/dl Hct 41.2 D (37.0-47.0) % MCV 79.4 L (80.0-98.0) fL MCH 24.7 L (27.0-33.0) pg MCHC 31.1 (31.0-35.0) g/dl RDW 13.1 (11.0-16.0) % Plt Count 337 (160-400) X10*3/uL MPV 10.3 (9.4-12.3) fL Immature Gran % (Auto) 0.4 (0.0-0.4) % Neut % (Auto) 63.6 (45-73) % Lymph % (Auto) 28.1 (20-40) % [place] % (Auto) 6.8 (2-11) % Eos % (Auto) 0.7 (0-4) % Baso % (Auto) 0.4 (0-2) % Lymph # (Auto) 3.0 (1.2-4.9) X10*3/uL [place] # (Auto) 0.7 (0.1-1.2) X10*3/uL Eos # (Auto) 0.1 (0.0-0.4) X10*3/uL Baso # (Auto) 0.0 (0.0-0.2) X10*3/uL Abs Immat Gran (auto) 0.04 H (0.00-0.03) X10*3/uL Absolute Neuts (auto) 6.7 (2.0-8.3) x10*3/uL Absolute Nucleated RBC 0.000 (0.0-0.012) X10*3/uL Nucleated RBC % (auto) 0.0 (0.0-0.2) /100WBC Sodium 142 (135-145) mmol/L Potassium 3.8 (3.3-5.1) mmol/L Chloride 107 (96-108) mmol/L Carbon Dioxide 23 (22-29) mmol/L Anion Gap 16 (12-20) BUN 11 (9-16) mg/dL Creatinine 0.72 (0.5-1.4) mg/dL Estim Creat Clear Calc 124.0 Estimated GFR > 60 Random Glucose 92 (60-115) mg/dL Calcium 9.8 (8.4-10.2) mg/dL Magnesium 1.9 (1.6-2.6) mg/dL Total Bilirubin 0.3 (0.0-1.0) mg/dL Direct Bilirubin 0.1 (0.0-0.5) mg/dL AST 14 (5-31) U/L ALT 10 (0-31) U/L Alkaline Phosphatase 66 (39-117) U/L Total Protein 7.7 (6.5-8.0) g/dL Albumin 4.3 (3.5-5.0) g/dL Lipase 12 (8-78) U/L Beta HCG, Quant < 2 mIU/mL Urine Color Yellow Urine Appearance Clear Urine pH 6.5 (5.0-9.0) Ur Specific [place] 1.025 (1.005-1.025) Urine Protein Negative (Neg-Trace) mg/dL Urine Glucose (UA) Negative (Negative) mg/dL Urine Ketones Trace (Negative) mg/dL Urine Blood Negative (Negative) Urine Nitrite Negative (Negative) Ur Leukocyte Esterase Negative (Negative) Independent Interpretation I performed an independent interpretation of an: Ultrasound (No cholelithiasis) Radiology Impression Discussion of test interpretation with radiology: I have reviewed the radiologist's reading. Radiologist Impression: US/US abdomen limited IMPRESSION: 1. There is generalized increase in hepatic echotexture, consistent with fatty infiltration or hepatocellular disease. Please correlate clinically. No focal hepatic mass or intrahepatic biliary dilatation is seen. 2. Otherwise, unremarkable examination. CT/CT abdomen pelvis w IV con IMPRESSION: 1. Slightly distended fluid-filled loops of small bowel scattered throughout the abdomen with minimal mesenteric vascular congestion. These findings are nonspecific and could be associated with enteritis. 2. Normal appendix. 3. Equivocal right hydrosalpinx, recommend further evaluation with pelvic ultrasound. 4. Simple appearing 5 cm right ovarian cyst, almost certainly benign. Recommend yearly follow-up with pelvic ultrasound. External Record Review External record reviewed: Outpatient record Medications Administered Discontinued Medications Generic Name Dose Route Start Last Admin Trade Name Freq PRN Reason Stop Dose Admin Sodium Chloride 1,000 mls @ 999 mls/hr 07/04/23 23:15 07/05/23 00:34 Ns IV 07/05/23 00:15 Infused .Q1H1M WINDY Infusion Iohexol 85 ml 07/04/23 23:25 07/04/23 23:26 Iohexol 350 Mg/Ml 100 Ml Infus..Btl IV 07/04/23 23:26 85 ml ONCE ONE Administration Ketorolac Tromethamine 30 mg 07/04/23 23:09 07/04/23 23:33 Ketorolac Tromethamine 30 Mg/Ml Vial IVPUSH 07/04/23 23:10 30 mg ONCE ONE Administration Discharge Plan Discharge Clinical Impression: Gastroenteritis, Abdominal pain Patient Disposition: Home, Self-Care Instructions: Enteritis (ED) Additional Instructions: Your blood work today is without concerning findings. Your urine test is without evidence of infection. testing today is negative. You can take ibuprofen 200 mg, 3 tablets (600mg) every 6-8 hours as needed for pain, in addition to Tylenol 500 mg, 2 tablets (1,000mg) every 4-6 hours as needed for pain, but not to exceed 3 doses daily (3,000mg).? As discussed, the CT scan of your abdomen pelvis today shows slight distension of the bowel which can be seen with a condition known as enteritis. Given the resolution of your diarrhea, this is likely resolving at this time. You may continue with a regular diet as tolerated. An ultrasound of your pelvis was obtained to further evaluate possible hydrosalpinx on the right side Please follow-up with your primary care provider. Return back to emergency department any new or worsening symptoms or concerns. Prescriptions: No Action oxycodone 5 mg tablet 5 mg PO Q8H PRN (Reason: pain) Qty: 3 0RF Rx Instructions: Partial Fill upon patient request. misoprostol [Cytotec] 200 mcg tablet 800 mcg PO ONCE Qty: 12 0RF Rx Instructions: Insert 4 tabs intravaginally. May repeat every 3 hours if no response. Max dose is 3 doses. Do not repeat the doses if you start bleeding. cyclobenzaprine 10 mg tablet 10 mg PO TID PRN (Reason: muscle spasm) Qty: 14 0RF ibuprofen 600 mg tablet 600 mg PO Q8H PRN (Reason: pain) Qty: 14 0RF lidocaine 5 % adhesive patch,medicated 1 patch topical DAILY Qty: 15 0RF Rx Instructions: leave on most painful area for up to 12 hrs ibuprofen 800 mg tablet 800 mg PO Q12H PRN (Reason: pain) naproxen 500 mg tablet 500 mg PO BID diclofenac sodium 1 % gel 2 g topical Referrals: Janie Dow NP [Primary Care Provider] - Print Language: [place]
[2023-07-04 20:45] LABS: MANUAL DIFF FLAG NO
[2023-07-04 20:46] LABS: Basophils Percent Auto 0.4 % (0-2); Eosinophils Absolute Auto 0.1 X10*3/uL (0.0-0.4); Eosinophils Percent Auto 0.7 % (0-4); Hematocrit 41.2 % (37.0-47.0); Hemoglobin 12.8 g/dl (12.0-16.0); Imm Gran Abs Auto 0.04 X10*3/uL (0.00-0.03); Imm Gran Pct Auto 0.4 % (0.0-0.4); Lymphocytes Percent Auto 28.1 % (20-40); Mean Corpuscular HGB Conc 31.1 g/dl (31.0-35.0); Mean Corpuscular Hemoglobin 24.7 pg (27.0-33.0); Mean Corpuscular Volume 79.4 fL (80.0-98.0); Mean Platelet Volume 10.3 fL (9.4-12.3); Monocytes Absolute Auto 0.7 X10*3/uL (0.1-1.2); Monocytes Percent Auto 6.8 % (2-11); Neutrophils Absolute Auto 6.7 x10*3/uL (2.0-8.3); Neutrophils Percent Auto 63.6 % (45-73); Platelet Count 337 X10*3/uL (160-400); Red Blood Count 5.19 X10*6/uL (4.20-5.50); Red Cell Distribution Width 13.1 % (11.0-16.0); White Blood Count 10.5 X10*3/uL (4.8-10.8)
[2023-07-04 21:05] LABS: Alanine Aminotransferase 10 U/L (0-31); Albumin Level 4.3 g/dL (3.5-5.0); Alkaline Phosphatase 66 U/L (39-117); Anion Gap 16 (12-20); Aspartate Amino Transferase 14 U/L (5-31); Bilirubin Direct 0.1 mg/dL (0.0-0.5); Bilirubin Total 0.3 mg/dL (0.0-1.0); Blood Urea Nitrogen 11 mg/dL (9-16); Calcium 9.8 mg/dL (8.4-10.2); Carbon Dioxide 23 mmol/L (22-29); Chloride 107 mmol/L (96-108); Estimated Glomerular Filt Rate > 60; Glucose Random 92 mg/dL (60-115); Lipase 12 U/L (8-78); Magnesium 1.9 mg/dL (1.6-2.6); Potassium 3.8 mmol/L (3.3-5.1); Sodium 142 mmol/L (135-145); Total Protein 7.7 g/dL (6.5-8.0)
[2023-07-04 21:12] LABS: HCG Quantitative < 2 mIU/mL
[2023-07-04 22:09] VITALS: BP 116/55; PULSE 82; RESP 18; O2SAT 98
[2023-07-04 22:26] LABS: Appearance Urine Clear; Color Urine Yellow; Glucose Urine UA Negative (Negative); Leukocyte Esterase Urine Negative (Negative); Nitrite Urine Negative (Negative); PH 6.5 (5.0-9.0); Specific Gravity - Urine 1.025 (1.005-1.025); Urine Blood Negative (Negative); Urine Ketones Trace mg/dL (Negative); Urine Protein Negative (Neg-Trace)
[2023-07-04] MEDS: iohexoL 350 MG/ML 100 ML INFUS..BTL 85 ML IV (23:26)
[2023-07-04] MEDS: Ketorolac Tromethamine 30 MG/ML VIAL IVPUSH (23:33)
[2023-07-04] MEDS: 0.9 % Sodium Chloride 1,000 ML 999 ML IV (23:33)
--- NOTE | 2023-07-04 23:41 | ECG_ITS ---
Test Reason : DIZZINESS Blood Pressure : / mmHG Vent. Rate : 079 BPM Atrial Rate : 079 BPM P-R Int : 138 ms QRS Dur : 098 ms QT Int : 380 ms P-R-T Axes : 041 036 061 degrees QTc Int : 435 ms Sinus rhythm with marked sinus arrhythmia Incomplete right bundle branch block Cannot rule out Anteroseptal infarct , age undetermined Abnormal ECG When compared with ECG of 22-FEB-2019 06:55, Minimal criteria for Anteroseptal infarct are now Present Criteria for Inferior infarct are no longer Present T wave amplitude has decreased in Lateral leads Referred By: Natalia Felton Electronically Signed By:Zi Bradley
[2023-07-05 00:28] VITALS: BP 115/72; BP 119/52; BP 122/66; PULSE 78; PULSE 79; PULSE 80
[2023-07-05 03:54] VITALS: BP 119/60; PULSE 74; RESP 16; TEMP 37.1; O2SAT 100
== END 2023-07-05 03:55 | disposition home or self-care (01) ==
PROVIDERS: Physician Assistant; Emergency Provider Student in an Organized Health Care Education/Training Program; PCP Nurse Practitioner Family
DX: K52.9 Noninfective gastroenteritis and colitis, unspecified (principal); R10.9 Unspecified abdominal pain; N83.201 Unspecified ovarian cyst, right side
CPT/HCPCS: 36415; 74177; 76705; 76830; 76856; 80048; 80076; 81003; 83690; 83735; 84702; 85025; 93005; 93975; 96361; 96374; 99284; 99285; J1885; Q9967

== ENCOUNTER → 2023-07-04 23:41 | Outpatient (BNV) | payer OTHER, SELFPAY | PROVIDERS: Emergency Provider Student in an Organized Health Care Education/Training Program; PCP Nurse Practitioner Family; Visit Provider Internal Medicine Cardiovascular Disease | DX: R42 Dizziness and giddiness (principal) | CPT/HCPCS: 93010 ==

== ENCOUNTER 2024-10-24 18:19 | Outpatient (REF) | payer OTHER, SELFPAY ==
--- OUTSIDE RECORDS SUMMARY | 2024-10-24 13:40 | XMS_ITS | Encounter Summary ---
Author Organization [employer] Address [address] [facility] [address] [place] [address] Care Team Providers Care Hand Flesher Name Role Phone Perla Patel NP Primary Care Provider [phone] Reason for Visit * Reason Comments Back Pain Encounter Details Date Type Department Care Team ([facility] st Contact Info) Description 10/24/2024 1:40 PM EDT Office Visit [facility] [address] [place] [address] Midline low back pain, unspecified chronicity, unspecified whether sciatica present Social History Tobacco Use Types Packs/Day Years Used Date Smoking Tobacco: Never Passive Smoke Exposure: Never Smokeless Tobacco: Never Tobacco Cessation:Counseling Given: Not Answered Alcohol Use Standard Drinks/Week Comments Never 0 (1 standard drink = 0.6 oz pur e alcohol) Depression Answer Date Recorded Patient Health Questionnaire-9 Score 14 03/09/2023 Patient Health Questionnaire-9 Score 14 03/09/2023 Last PHQ-9: Questionnaire Data Not on file 0 03/09/2023 Housing Stability Answer Date Recorded What is your housing situation today? I have mirta ba 03/03/[address] you li ve. Do you have problems with any of the following? None of the above 03/03/2023 Food Insecurity Answer Date Recorded Within the past 12 months, y ou worried that your food would run out before you got money to buy more: Never True 03/03/2023 Within the past 12 months,th e food you bought just didn't last and you didn't have enough money to get more: Never True 06/2023 Transportation Answer Date Recorded In the past 12 months, has l ack of transportation kept you from medical appts, meetings, work or from getting things needed for daily living? No 03/03/2023 Utilities Answer Date Recorded In the past 12 months, has t he electric, gas, oil or water company threatened to shut off services in your home? No 03/03/2023 Depression Answer Date Recorded Patient Health Questionnaire-2 Score 6 03/09/2023 Comments No Sex and Gender Information Value Date Recorded Sex Assigned at Female 12/27/2021 10:30 AM EDT Legal Sex Female 10:30 AM EDT Gender Identity Female 12/27/2021 10:30 AM EDT Sexual Orientation Choose not to disclose 2021 10:30 AM EDT documented as of this encounter Last Filed Vital Signs Vital Sign Reading Time Taken Comments Blood Pressure 135/70 10/24/2024 1:51 PM EDT Pulse 80 10/24/2024 1:51 PM EDT Temperature 36.7 C (98.1 F) 10/24/2024 1:51 PM EDT Respiratory Rate 18 10/24/2024 1:51 PM EDT Oxygen Saturation 98% 10/24/2024 1:51 PM EDT Inhaled Oxygen Concentration - - Weight 108 kg (237 lb) 10/24/2024 1:51 PM EDT Height - - Body Mass Index 40.68 03/03/2023 10:06 AM EST documented in this encounter Plan of Treatment Upcoming Encounters Date Type Department Care Team (Late st Contact Info) Description 11/15/2024 11:00 AM EDT Office Visit [facility] [address] [place] [address] Shahid, Myah, OD [address] [place] [address] 12/06/2024 10:30 AM EDT Office Visit [facility] [address] [place] [address] Perla Patel NP [address] [place] [address] Scheduled Orders Name Type Priority Associated Diagnoses Orde r Schedule Culture, Urine, Routine Microbiology Routine Midline low back pain, unspecified chronicity, unspecified whether sciatica present Ordered: 10/24/2024 XR Lumbar Spine 2-3 Views Imaging Routine Midline low back pain, unspecified chronicity, unspecified whether sciatica present Expected: 10/24/2024, Expires: 10/24/2025 XR KUB and Upright 2 Views Imaging Routine Midline low back pain, unspecified chronicity, unspecified whether sciatica present Expected: 10/24/2024, Expires: 10/24/2025 documented as of this encounter Procedures Procedure Name Priority Date/Time Associated Diagnosis Comments POCT URINALYSIS DIPSTICK Routine 10/24/2024 2:00 PM EDT Midline low back pain, unspecified chronicity, unspecified whether sciatica present documented in this encounter Results * (ABNORMAL) POCT urinalysis dipstick manually resulted (10/24/2024 2:00 PM EDT) Color, UA Yellow Clarity, UA Clear Glucose, UA Negative Bilirubin, UA Negative Ketones, UA Negative Spec Grav, UA 1.030 Blood, UA Positive(A) Negative, None Detected Comment:Moderate pH, UA 6.0 Protein, UA Trace Urobilinogen, UA 0.2 Leukocytes, UA Trace Negative, Rare, Trace Nitrite, UA Negative Negative, None Detected Appearance, UA OK Urine 10/24/2024 2:00 PM EDT Tiny Jones MD POINT OF CARE TEST ENTER/E DIT ORDERABLES Final Result documented in this encounter Visit Diagnoses Diagnosis Midline low back pain, unspecified chronicity, unspecified whether sciatica present documented in this encounter Additional Health Concerns Assessment Noted Time PHQ-9 Depression Total Score: 14 024 9:18 AM EST documented as of this encounter Care Teams Hand Flesher Relationship Specialty Start Date End Date Perla Patel NP [address] [place] [phone] PCP - General Family Medicine 10/31/23 documented as of this encounter
--- OUTSIDE RECORDS SUMMARY | 2024-10-24 18:23 | XMS_ITS | Clinical Summary ---
Author Organization [employer] Address [address] [facility] 7[address] [place] [address] Care Team Providers Care Die Casting Machine Maintainer Name Role Phone Perla Patel NP Primary Care Provider [phone] Allergies No known active allergies Medications * This document contains information received from the source organization and may not represent a complete record from that organization. sertraline (Zoloft) 50 MG tablet TAKE 1 TABLET BY MOUTH EVERY DAY IN THE MORNING 30 tablet 03/31/19 24 Active lidocaine (Lidoderm) 5 % patch TAKE 1 PATCH (TOPICAL) PER PACKAGE DIRECTIONS FOR 30 DAYS 01/02/20 23 Active cyclobenzaprin e (Flexeril) 10 MG tabletIndicati ons:Midline low back pain, unspecified chronicity, unspecified whether sciatica present Take 1 tablet (10 mg) by mouth if needed at bedtime for muscle spasms. 30 tablet 10/25/19 25 Active ibuprofen 800 MG tabletIndicati ons:Midline low back pain, unspecified chronicity, unspecified whether sciatica present Take 1 tablet (800 mg) by mouth every 8 (eight) hours if needed for moderate pain or fever. 30 tablet 10/25/19 25 025 Active cyclobenzaprin e (Flexeril) 10 MG tablet PLEASE SEE ATTACHED FOR DETAILED DIRECTIONS 01/02/20 23 025 Discontinued(Re order (will not trigger notification to Pharmacy)) Active Problems Problem Noted Date Diagnosed Date Mixed anxiety and depressive disorder 03/03/2023 Assessment & Plan (03/09/2023 11:00 AM EST): During [facility] Consult Radha presenting with depressed mood, loss of interests/pleasure , changes in sleep difficulty falling asleep, change in appetite or weight overeating, trouble concentrating, thoughts of worthlessness or guilt, fatigue/loss of energy, inappropriate guilt , hopelessness, worthlessness and excessive worry/anxiety, difficulty controlling worry, restless/keyed up/On edge, easily fatigued, difficulty concentrating/Mind going blank , irritability, muscle tension, and sleep disturbance difficulty falling asleep; for a period of 18+ mo, for all symptoms in the context of family issues, recent move, and housing. Radha reports lack of network and support. She moved from [place] in 2017 and is currently living with her aunt. Sense of isolation and loneliness since relocation to [place]. PLAN: (check all that apply) New/Additional Services needed On-site non-integrated services , Behavioral Health Integration Plan External We called N intake and made appointment for therapy services on same-day, Patient Self Plan Patient to utilize skills provided in intervention , Patient to reach out to [facility] team as needed, Comply with medication , Patient to engage in OP therapy , and Patient to reach out to [facility] as needed. Radha will incorporate coping mechanisms provided during intervention and self- care into her daily routine. Encounters Date Type Department Care Team Description 10/24/2024 1:40 PM EDT Office Visit [facility] [address] [place] [address] Midline low back pain, unspecified chronicity, unspecified whether sciatica present 10/24/2024 Travel 10/11/2024 Telephone [facility] [address] [place] [address] Kaya Tatum MA Chart Prep 10/11/2024 Telephone [facility] [address] [place] [address] Perla Patel NP insurance (Called pt left voicemail stating insurance she haves we don't take , recommended pt to come to insurance enrollment for any assistance she may need. ) 10/07/2024 Patient Outreach [facility] [address] [place] [address] Perla Patel NP Pre-visit Planning ([facility] unable to reach [facility]) from Last 3 Months Immunizations Immunization Administration Dates Next Due Influenza injectable quadrivalent preservative f ree 02/08/2022,12/04/2018 MMR 02/22/2022 Pfizer Covid-19 Vaccine 12+ 02/10/2022 Family History Medical History Relation Name Comments Diabetes type II Father Relation Name Status Comments Father Social History Tobacco Use Types Packs/Day Years [...] not to disclose 2021 10:30 AM EDT Last Filed Vital Signs Vital Sign Reading Time Taken Comments Blood Pressure 135/70 10/24/2024 1:51 PM EDT Pulse 80 10/24/2024 1:51 PM EDT Temperature 36.7 C (98.1 F) 10/24/2024 1:51 PM EDT Respiratory Rate 18 10/24/2024 1:51 PM EDT Oxygen Saturation 98% 10/24/2024 1:51 PM EDT Inhaled Oxygen Concentration - - Weight 108 kg (237 lb) 10/24/2024 1:51 PM EDT Height 162.6 cm (5' 4 ) 03/03/2023 10:06 AM EST Body Mass Index 40.68 03/03/2023 10:06 AM EST Plan of Treatment Upcoming Encounters Date Type Department Care Team (Late st Contact Info) Description 11/15/2024 11:00 AM EDT Office Visit [facility] [address] [place] [address] ShahidMyah chahal, OD [address] [place] [address] 12/06/2024 10:30 AM EDT Office Visit [facility] [address] [place] [address] Perla Patel, TIKA [address] [place] [address] Health Maintenance Due Date Last Done Comments HIV Screening 1996 Disability Screening 1996 Alcohol/Substance Use Screening 2008 Family Planning (PISQ) 11/14/2011 HPV Vaccines (1 - 3-dose series) 11/14/2011 DTaP/Tdap/Td Vaccines (1 - Tdap) 11/14/2015 Hepatitis B Vaccines (1 of 3 - 19+ 3-dose series) 11/14/2015 Pap Smear 2017 Depression Monitoring 09/07/2023 03/09/2023 , 03/09/2023 COVID-19 Vaccine (2 - 2023-2 5 season) 2023 02/10/2022 SDOH Screening 03/03/2024 03/03/2023 Influenza Vaccine (#1) 2024 2, 12/04/2018 Tobacco Screening 10/24/2025 10/24/2024 Lipid Panel 03/03/2028 03/03/2023 Zoster Vaccines (1 of 2) 2046 RSV Patients and Patients Aged 60 years or older (1 - 1-dose 75+ series) 11/14/2071 Hepatitis C Screening Completed 03/03/2023 HIB Vaccines Aged Out No longer eligi ble based on patient's age to complete this topic Hepatitis A Vaccines Aged Out No long er eligible based on patient's age to complete this topic IPV Vaccines Aged Out No longer eligi ble based on patient's age to complete this topic Meningococcal B Vaccine Aged Out No l onger eligible based on patient's age to complete this topic Meningococcal Vaccine Aged Out No michael tori eligible based on patient's age to complete this topic Pneumococcal Vaccine: Pediatrics (0 to 5 Years) and At-Risk Patients (6 to 49) Years Aged Out No longer eligible b ased on patient's age to complete this topic RSV under 20 months Aged Out No longe r eligible based on patient's age to complete this topic Rotavirus Vaccines Aged Out No longer eligible based on patient's age to complete this topic Procedures Procedure Name Priority Date/Time Associated Diagnosis Comments POCT URINALYSIS DIPSTICK Routine 10/24/2024 2:00 PM EDT Midline low back pain, unspecified chronicity, unspecified whether sciatica present HEPATITIS C AB W/REFL TO HCV RNA, QN, PCR Routine 03/03/2023 12:02 PM EST Routine adult health maintenance LIPID PANEL, STANDARD Routine 03/03/2023 12:02 PM EST Routine adult health maintenance from Last 3 Months or Most Recently Relevant to Health Maintenance Results * (ABNORMAL) POCT urinalysis dipstick manually [...] CARE TEST ENTER/E DIT ORDERABLES Final Result * Hepatitis C Antibody with Reflex to HCV, RNA, Quantitative, Real-Time PCR (03/03/2023 12:02 PM EST) Hepatitis C Antibody Nonreactive Nonreactive [facility] Comment:Antibodies to HCV no t detected; does not exclude early acuteHCV infection. Blood Venous blood specimen / Unknown 03/03/2023 12:02 PM EST 03/03/2023 1:19 PM EST Janie Dow [facility] BLOOD ORDERABLES Final Resu lt [facility] [address] [place] [phone] * (ABNORMAL) Lipid Panel, Standard (03/03/2023 12:02 PM EST) Triglycerides 109 <150 mg/dL [facility] Comment:Desirable Triglyceri de: less than 150 mg/dLBorderline High Triglyceride 150-199 mg/dLHigh Triglyceride: 200-499 mg/dLVery High Triglyceride: greater than or equal to 5OO mg/dL Cholesterol 197 <200 mg/dL [facility] Comment:Desirable Cholestero l: less than 200 mg/dLBorderline High Cholesterol: 200-239 mg/dLHigh Cholesterol: greater than 239 mg/dL LDL Cholesterol Calculated 119(H) <100 mg/dL [facility] Comment:Desirable LDL: less than 100 mg/dLNear Optimal/Above Optimal LDL: 110- 129 mg/dLBorderline High LDL: 130-159 mg/dLHigh LDL: 160-189 mg/dLVery High LDL: greater than or equal to 190 mg/dL HDL Cholesterol 57 >40 mg/dL [facility] Comment:Desirable HDL: great er than 40 mg/dL Note: This HDL assay may give artificially low results in patients with liver disease. Blood Venous blood specimen / Unknown 03/03/2023 12:02 PM EST 03/03/2023 1:19 PM EST us Janie Dow [facility] BLOOD ORDERABLES Final Resu lt [facility] [address] [place] [phone] [phone] from Last 3 Months or Most Recently Relevant to Health Maintenance Insurance [facility] STANDARD Care Teams Die Casting Machine Maintainer Relationship Specialty Start Date End Date Perla Patel NP [address] [place] [phone] PCP - General Family Medicine 10/31/23
--- OUTSIDE RECORDS SUMMARY | 2024-10-24 18:23 | XMS_ITS | Encounter Summary ---
Author Organization [employer] Address [address] [facility] [address] [place] [address] Care Team Providers Care Physicist Nuclear Name Role Phone Janie Dow Primary Care Provider [phone] Perla Patel NP Primary Care Provider [phone] Reason for Visit * Reason Onset Date Comments Appointment Request 01/24/2023 Encounter Details Date Type Department Care Team ([facility] st Contact Info) Description 01/24/2023 Telephone [facility] [address] [place] [address] Janie Dow FNP [address] [place] [address] Appointment Request Social History Tobacco Use Types Packs/Day Years Used Date Smoking Tobacco: Never Passive Smoke Exposure: Never Smokeless Tobacco: Never Comments Unknown Sex and Gender Information Value Date Recorded Sex Assigned at Female 12/27/2021 10:30 AM EDT Legal Sex Female 10:30 AM EDT Gender Identity Female 12/27/2021 10:30 AM EDT Sexual Orientation Choose not to disclose 2021 10:30 AM EDT documented as of this encounter Miscellaneous Notes * Telephone Encounter - Med Bajwa - 01/25/2023 4:04 PM EST Tc from pt regarding previous message. * Telephone Encounter - Dorothy Hernandez - 01/24/2023 9:42 AM EST Tc from pt requesting an appointment with PCP to discuss getting tubal ligation. Please contact pt at [phone] documented in this encounter Plan of Treatment Upcoming Encounters Date Type Department Care Team (Late st Contact Info) Description 11/15/2024 11:00 AM EDT Office Visit [facility] [address] [place] [address] Myah Key, OD [address] [place] [address] 12/06/2024 10:30 AM EDT Office Visit [facility] [address] [place] [address] Perla Patel NP [address] [place] [address] documented as of this encounter Visit Diagnoses Not on filedocumented in this encounter Care Teams Physicist Nuclear Relationship Specialty Start Date End Date Janie Dow FNP [address] [place] [address] PCP - General Family Medicine 11/04/22 10/30/23 Perla Patel NP [address] [place] [address] PCP - General Family Medicine 10/31/23 documented as of this encounter
--- OUTSIDE RECORDS SUMMARY | 2024-10-24 18:23 | XMS_ITS | Encounter Summary ---
Author Organization [employer] Address [address] [facility] [address] [place] [address] Care Team Providers Care Editorial Assistant Name Role Phone Perla Patel NP Primary Care Provider [phone] Encounter Details Date Type Department Care Team (Latest Contact Info) Description 10/24/2024 Travel Social History Tobacco Use Types Packs/Day Years Used Date Smoking Tobacco: Never Passive Smoke Exposure: Never Smokeless Tobacco: Never Alcohol Use Standard Drinks/Week Comments Never 0 [...] AM EDT documented as of this encounter Plan of Treatment Upcoming Encounters Date Type Department Care Team (Late st Contact Info) Description 11/15/2024 11:00 AM EDT Office Visit [facility] [address] [place] [address] Shahid, Myah, OD [address] [place] [address] 12/06/2024 10:30 AM EDT Office Visit [facility] [address] [place] [address] Perla Patel NP [address] [place] [address] documented as of this encounter Visit Diagnoses Not on filedocumented in this encounter Additional Health Concerns Assessment Noted Time PHQ-9 Depression Total Score: 14 024 9:18 AM EST documented as of this encounter Care Teams Editorial Assistant Relationship Specialty Start Date End Date Perla Patel NP [address] [place] [address] PCP - General Family Medicine 10/31/23 documented as of this encounter
--- OUTSIDE RECORDS SUMMARY | 2024-10-24 18:23 | XMS_ITS | Clinical Summary ---
Author Organization [facility] Address [address] [place] [phone] Phone Care Team Providers Care Voice Intercept Technician Name Role Phone Pcp, Unknown Primary Care Provider Unavailabl e Immunizations Immunization Administration Dates Next Due COVID-19 (Pre-12/19) Pfizer Vaccine, mRNA, PF Influenza Quadrivalent Preservative Free IM 01/27 MMR 02/22/2022 Social History Tobacco Use Types Packs/Day Years Used Date Smoking Tobacco: Never Assessed Education Answer Date Recorded Are you interested in more education? Not on brandi e 06/25/2022 Are you concerned about learning? Not on file 06/25/2022 No 06/25/2022 No 06/25/2022 Digital Access Answer Date Recorded No 07/24/2022 No 07/24/2022 No 07/24/2022 Reliable internet access at home? Not on file 07/24/2022 Device with a working camera? Not on file Comments Unknown Sex and Gender Information Value Date Recorded Sex Assigned at Not on file Legal Sex Female 6:07 PM EST Gender Identity Not on file Sexual Orientation Not on file Plan of Treatment Health Maintenance Due Date Last Done Comments Adult Td,Tdap Booster 1996 DEPRESSION SCREENING 2008 SMOKING Hx and SMOKELESS TOB ACCO SCREENING 2009 HEPATITIS C SCREENING 2014 HIV ONE-TIME SCREENING (18-6 5 YEARS) 2014 PAP SMEAR 2017 COVID-19 VACCINE (2 - 2023-2 5 season) 2023 02/10/2022 INFLUENZA VACCINE (#1) 2024 02/08/2022 HEPATITIS A VACCINES Aged Out No long er eligible based on patient's age to complete this topic HIB VACCINES Aged Out No longer eligi ble based on patient's age to complete this topic MENINGOCOCCAL VACCINES (ACWY) Aged Out No longer eligible based on patient's age to complete this topic MENINGOCOCCAL VACCINES (B) Aged Out N o longer eligible based on patient's age to complete this topic PNEUMOCOCCAL VACCINES (0-49 years) Aged Out No longer eligible based on patient's age to complete this topic Medical Devices Not on file Care Teams Voice Intercept Technician Relationship Specialty Start Date End Date Pcp, Unknown PCP - General 02/08/22 Additional Source Comments The information contained in this document represents components of the legal health record. It is not the complete legal health record.[facility]
--- OUTSIDE RECORDS SUMMARY | 2024-10-24 18:23 | XMS_ITS | Encounter Summary ---
Author Organization [employer] Address [address] [facility] [address] [place] [address] Care Team Providers Care Health Information Managers Name Role Phone Perla Patel NP Primary Care Provider [phone] Reason for Visit * Reason Onset Date Comments TP appointment 07/17/2024 Encounter Details Date Type Department Care Team ([facility] st Contact Info) Description 07/17/2024 Telephone [facility] [address] [place], [place] [phone] Perla Patel NP [address] [place] [address] TP appointment Social History Tobacco Use Types Packs/Day Years [...] encounter Miscellaneous Notes * Telephone Encounter - Sandrine Zamorano - 07/17/2024 12:54 PM EDT Tc from pt requesting TP appointment . [phone] documented in this encounter Plan of Treatment Upcoming Encounters Date Type Department Care Team (Late st Contact Info) Description 11/15/2024 11:00 AM EDT Office Visit [facility] OPT[facility] [address] [place] [address] Shahid, Myah, OD [address] [place] [address] 12/06/2024 10:30 AM EDT Office Visit [facility] [address] [place] [address] Perla Patel NP [address] [place] [address] documented as of this encounter Visit Diagnoses Not on filedocumented in this encounter Additional Health Concerns Assessment Noted Time PHQ-9 Depression Total Score: 14 024 9:18 AM EST documented as of this encounter Care Teams Health Information Managers Relationship Specialty Start Date End Date Perla Patel NP [address] [place] [address] PCP - General Family Medicine 10/31/23 documented as of this encounter
== END 2024-10-24 18:20 | disposition home or self-care (01) ==
LOC: HO.HHCLNP 18:19
PROVIDERS: Visit Provider Family Medicine
DX: M54.50 Low back pain, unspecified (principal)
CPT/HCPCS: 87086

== ENCOUNTER 2024-10-29 10:16 | Outpatient (REF) | payer OTHER, SELFPAY ==
--- NOTE | ~2024-10-29 | XR_ITS ---
Examination: KUB and lumbar spine. CLINICAL INDICATION: Acute mid back pain. COMPARISON: CT abdomen pelvis 07/04/2023. TECHNIQUE: KUB one view. Lumbar spine 3 views. FINDINGS: KUB. There is scattered stool in nondistended colon. No organomegaly. No radiopaque calculi. There is IUD in pelvis. No gross bony abnormality. LUMBAR SPINE: There is maintained lumbar lordosis. The vertebral heights, alignment and disc heights are normal. There is no visible acute fracture, dislocation or subluxation. No lytic or sclerotic process seen. The paravertebral soft tissues are normal. XR/XR KUB IMPRESSION: Mild constipation. Unremarkable lumbar spine exam. Electronically signed by: Mando Hamilton MD 10/29/2024 10:59 AM EDT
--- NOTE | ~2024-10-29 | XR_ITS ---
Examination: KUB and lumbar spine. CLINICAL INDICATION: Acute mid back pain. COMPARISON: CT abdomen pelvis 07/04/2023. TECHNIQUE: KUB one view. Lumbar spine 3 views. FINDINGS: KUB. There is scattered stool in nondistended colon. No organomegaly. No radiopaque calculi. There is IUD in pelvis. No gross bony abnormality. LUMBAR SPINE: There is maintained lumbar lordosis. The vertebral heights, alignment and disc heights are normal. There is no visible acute fracture, dislocation or subluxation. No lytic or sclerotic process seen. The paravertebral soft tissues are normal. XR/XR lumbar spine 2-3V IMPRESSION: Mild constipation. Unremarkable lumbar spine exam. Electronically signed by: Mando Hamilton MD 10/29/2024 10:59 AM EDT
--- OUTSIDE RECORDS SUMMARY | 2024-10-29 11:51 | XMS_ITS | Clinical Summary ---
Author Organization [facility] Address [address] [place] [phone] Phone Care Team Providers Care Edger Feeder Name Role Phone Pcp, Unknown Primary Care [...] Medical Devices Not on file Care Teams Edger Feeder Relationship Specialty Start Date End Date Pcp, Unknown PCP - General 02/08/22 Additional Source Comments The information contained in this document represents components of the legal health record. It is not the complete legal health record.[facility]
== END 2024-10-29 10:17 | disposition home or self-care (01) ==
LOC: HO.HHCX 10:16
PROVIDERS: PCP Nurse Practitioner Family; Visit Provider Family Medicine
DX: M54.50 Low back pain, unspecified (principal); R31.29 Other microscopic hematuria
CPT/HCPCS: 72100; 74018

== ENCOUNTER → 2024-10-29 10:24 | Outpatient (BNV) | payer OTHER, SELFPAY | PROVIDERS: PCP Nurse Practitioner Family; Visit Provider Radiology Diagnostic Radiology | DX: M54.50 Low back pain, unspecified (principal); K59.00 Constipation, unspecified | CPT/HCPCS: 72100; 74018 ==